=== PATIENT | female | born 1980 | race Caucasian/White ===

== ENCOUNTER 2016-02-26 11:14 | Emergency (ER) | payer OTHER ==
[~2016-02-26 11:14] MED LIST: AMBI10TA OR; ATIV1TAB2 OR; BUDE150T OR; ZITHTAB OR
[2016-02-26] MEDS ORDERED: ONDANSETRON 4 MG ORAL DISINTEGRATING TAB (S0181) As Ordered ONE (12:52)
[2016-02-26 13:01] LABS: BASO % 0.4 % (0.0-1.0); EOS # 0.2 K/mm3 (0.0-0.50); LARGE UNSTAINED CELL # 0.2 K/mm3 (0.0-0.4); LARGE UNSTAINED CELL % 2.6 % (0.0-4.0); LYMPH # 1.1 K/mm3 (1.5-4.5); LYMPH % 14.8 % (24.0-44.0); MEAN CORPUSCULAR HEMOGLOBIN 31.4 pg (27.0-33.0); MEAN CORPUSCULAR HGB CONC 35.2 g/dl (32.0-36.5); MEAN CORPUSCULAR VOLUME 89.3 fl (80.0-96.0); MONO # 0.4 K/mm3 (0.0-0.8); MONO % 5.6 % (0.0-5.0); NEUTROPHILS # 5.4 K/mm3 (1.8-7.7); NEUTROPHILS % 73.7 % (36.0-66.0); PLATELET COUNT, AUTOMATED 249 k/mm3 (150-450); RED CELL DISTRIBUTION WIDTH 12.4 % (11.5-14.5); WHITE BLOOD COUNT 7.4 K/mm3 (4.0-10.0)
--- NOTE | 2016-02-26 13:16 | REP ---
Right upper quadrant ultrasound 02/26/2016 Indication right upper quadrant, epigastric pain; patient is not NPO Findings: Gallbladder is without visualized cholelithiasis wall thickening or pericholecystic fluid. Gallbladder wall 2.5 mm in thickness upper normal range. There was tenderness upon scanning over the abdomen in general. Common bile duct 4.6 mm transverse dimension within normal limits There is mild diffuse fatty infiltration of liver. The pancreatic head is partially obscured by bowel gas. Remainder of pancreas is unremarkable. Right kidney measures 13.3 x 4.9 x 4.2 cm and is without hydronephrosis. There is normal right renal cortical echogenicity. There is no free fluid in cul-de-sac Impression: No evidence of cholelithiasis or biliary dilatation. Mild diffuse fatty infiltration of liver. Pancreatic head is partially obscured by bowel gas . Remainder of pancreas is unremarkable Right kidney without hydronephrosis Signed by Maribell Oseguera MD 02/26/2016 01:08 P
[2016-02-26 13:21] LABS: ALBUMIN 3.4 GM/DL (3.2-5.2); ALBUMIN/GLOBULIN RATIO 0.94 (1.00-1.93); ALKALINE PHOSPHATASE 59 U/L (45-117); ALT/SGPT 36 U/L (12-78); AMYLASE 25 U/L (25-115); ANION GAP 10 MEQ/L (8-16); AST/SGOT 22 U/L (15-37); BILIRUBIN,DIRECT 0.1 MG/DL (0.0-0.2); BILIRUBIN,TOTAL 0.5 MG/DL (0.2-1.0); BLOOD UREA NITROGEN 15 MG/DL (7-18); CALCIUM LEVEL 8.5 MG/DL (8.5-10.1); CARBON DIOXIDE LEVEL 26 MEQ/L (21-32); CHLORIDE LEVEL 105 MEQ/L (98-107); CREATININE FOR GFR 0.63 MG/DL (0.55-1.02); GLOMERULAR FILTRATION RATE > 60.0 (>60); GLUCOSE, FASTING 96 MG/DL (70-105); POTASSIUM SERUM 4.1 MEQ/L (3.5-5.1); SODIUM LEVEL 141 MEQ/L (136-145)
--- NOTE | 2016-02-26 14:35 | EDDOCDS ---
Nurse's Notes [facility] Name: Valarie Claudio Age: 35 yrs Sex: Female : 1980 Arrival Date: 02/26/2016 Time: 11:14 Bed PR2 / Private MD: Edna Shaw Diagnosis: Nausea and vomiting-likely viral gastroenteritis;Diarrhea, unspecified Presentation: 02/25 11:29 Presenting complaint: Patient states: upper abd cramps for past 4 days. vomits with srm eating. diarrhea. no abnormal vag bleeding. Risk factors: the patient reports no vaginal bleeding. Adult Sepsis Screening: The patient does not have new or worsening altered mentation. Patient's respiratory rate is less than 22. Systolic blood pressure is greater than 100. Patient has a qSOFA score of 0- Negative Sepsis Screen. Suicide/Homicide risk assessment- the patient denies having any suicidal and/or homicidal ideations and does not present with any other emotional, behavioral or mental health complaints. 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 Transition of care: patient was not received from another setting of care. 11:29 Acuity: CHANDLER Level 3 srm 11:29 Method Of Arrival: Walkin/Carried/Asstd srm Triage Assessment: 11:31 General: Appears in no apparent distress, Behavior is appropriate for age, cooperative. srm Pain: Pain currently is 8 out of 10 on a pain scale. HIV screening NA for this visit Offered previously. GI: Reports cramping, diarrhea, upper abd pain, nausea, vomiting. 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 albuterol sulfate 90 mcg/actuation Inhl HFAA 2. ibuprofen 800 mg Oral tab as needed 3. Xanax Unknown Oral 1 tab as needed - PMHx: Anemia; Anxiety; borderline DM; Bronchitis; Depression; Panic Attacks; PTSD; - PSHx: none; - Social history: Smoking status: Patient states was never smoker of tobacco. No barriers to communication noted, The patient speaks fluent Portuguese, Speaks appropriately for age. - Family history: No immediate family members are acutely ill. - : The pt / caregiver states he / she is not on anticoagulants. Home medication list is obtained from the patient. - Exposure Risk Screening:: None identified. Screenin:16 Screening information is obtained from the patient. Fall risk: No risks identified. mb9 Assistance ADL's: requires no assistance with activities of daily living. Abuse/DV Screen: The patient / caregiver reports he/she is: not in a situation that causes fear, pain or injury. Nutritional screening: No deficits noted. Advance Directives: There is no active DNR order. home support is adequate. Assessment: 14:16 General: Appears in no apparent distress, Behavior is appropriate for age, cooperative. mb9 Pain: Location: abdomen Quality of pain is described as crampy. GI: Reports pt reports nausea is decreased. Vital Signs: 11:16 BP 122 / 80; Pulse 95; Resp 16; Temp 99.7(O); Pulse Ox 97% ; Weight 88.45 kg; Height 5 cmb ft. 6 in. (167.64 cm); Pain 8/10; 14:29 BP 114 / 67; Pulse 76; Resp 18; Temp 99.0(TE); Pulse Ox 99% on R/A; Pain 6/10; mdr 11:16 Body Mass Index 31.47 (88.45 kg, 167.64 cm) cmb Vitals: 11:16 Log In Time: February 26, 2016 at 11:14. cmb ED Course: 11:15 Patient visited by Stefania Marks. cmb 11:15 Patient moved to Waiting cmb 11:16 Edna Shaw MD is Private Physician. cmb 11:16 Patient moved to Pre RCE cmb 11:30 Triage Initiated srm 12:07 Patient moved to Triage 1 mb9 12:09 Jaron Encarnacion PA-C is PHCP. ar2 12:09 Rob Hwang MD is Attending Physician. ar2 12:16 Patient visited by Jaron Encarnacion PA-C. ar2 12:26 Patient moved to PR2 / 26 mdr 12:29 Patient moved to Ultrasound sm5 12:42 Patient moved to PR2 / 26 sm5 12:51 Amylase Sent. mdr 12:51 Basic Metabolic Profile Sent. mdr 12:51 CBC with Diff Sent. mdr 12:51 Lipase Sent. mdr 12:51 Liver Profile Sent. mdr 12:54 Patient visited by Rod Cummings RN. mb9 13:17 Gallbladder US Returned. EDMS 13:25 Patient visited by Rod Cummings RN. mb9 14:16 Patient visited by Rod Cummings RN. mb9 14:24 Edna Shaw MD is Referral Physician. ar2 14:30 Patient visited by Dominguez Villa PCA. mdr 14:33 The patient / caregiver is instructed regarding the plan of care and ED course. mb9 14:33 No IV's were initiated during this patient's visit. No procedures done that require mb9 assistance. Administered Medications: 12:54 Drug: Ondansetron ODT 4 mg [ondansetron 4 mg disintegrating tablet (1 tabs)] Route: PO; mb9 13:26 Follow up: Response: Nausea is decreased mb9 Intake: 14:16 PO: 360.00ml (Water); Total: 360.00ml. mb9 Order Results: Lab Order: Amylase; SPEC'M 02/26/16 12:49 Test: AMYLASE; Value: 25; Range: 25-115; Units: U/L; Status: F Lab Order: Basic Metabolic Profile; SPEC'M 02/26/16 12:49 Test: GLUCOSE, FASTING; Value: 96; Range: 70-105; Units: MG/DL; Status: F Test: BLOOD UREA NITROGEN; Value: 15; Range: 7-18; Units: MG/DL; Status: F Test: CREATININE FOR GFR; Value: 0.63; Range: 0.55-1.02; Units: MG/DL; Status: F Test: GLOMERULAR FILTRATION RATE; Value: > 60.0; Range: >60; Status: F Test: SODIUM LEVEL; Value: 141; Range: 136-145; Units: MEQ/L; Status: F Test: POTASSIUM SERUM; Value: 4.1; Range: 3.5-5.1; Units: MEQ/L; Status: F Test: CHLORIDE LEVEL; Value: 105; Range: 98-107; Units: MEQ/L; Status: F Test: CARBON DIOXIDE LEVEL; Value: 26; Range: 21-32; Units: MEQ/L; Status: F Test: ANION GAP; Value: 10; Range: 8-16; Units: MEQ/L; Status: F Test: CALCIUM LEVEL; Value: 8.5; Range: 8.5-10.1; Units: MG/DL; Status: F Test Note: ; Units are mL/min/1.73 m2 Chronic Kidney Disease Staging per NKF: Stage I & II GFR >=60 Normal to Mildly Decreased Stage III GFR 30-59 Moderately Decreased Stage IV GFR 15-29 Severely Decreased Stage V GFR <15 Very Little GFR Left ESRD GFR <15 on PRE PRESS OPERATOR Lab Order: CBC with Diff; SPEC'M 02/26/16 12:49 Test: WHITE BLOOD COUNT; Value: 7.4; Range: 4.0-10.0; Units: K/mm3; Status: F Test: RED BLOOD COUNT; Value: 4.36; Range: 4.00-5.40; Units: M/mm3; Status: F Test: HEMOGLOBIN; Value: 13.7; Range: 12.0-16.0; Units: g/dl; Status: F Test: HEMATOCRIT; Value: 38.9; Range: 36.0-47.0; Units: %; Status: F Test: MEAN CORPUSCULAR VOLUME; Value: 89.3; Range: 80.0-96.0; Units: fl; Status: F Test: MEAN CORPUSCULAR HEMOGLOBIN; Value: 31.4; Range: 27.0-33.0; Units: pg; Status: F Test: MEAN CORPUSCULAR HGB CONC; Value: 35.2; Range: 32.0-36.5; Units: g/dl; Status: F Test: RED CELL DISTRIBUTION WIDTH; Value: 12.4; Range: 11.5-14.5; Units: %; Status: F Test: PLATELET COUNT, AUTOMATED; Value: 249; Range: 150-450; Units: k/mm3; Status: F Test: NEUTROPHILS %; Value: 73.7; Range: 36.0-66.0; Abnormal: Above high normal; Units: %; Status: F Test: LYMPH %; Value: 14.8; Range: 24.0-44.0; Abnormal: Below low normal; Units: %; Status: F Test: MONO %; Value: 5.6; Range: 0.0-5.0; Abnormal: Above high normal; Units: %; Status: F Test: EOS %; Value: 3.0; Range: 0.0-3.0; Units: %; Status: F Test: BASO %; Value: 0.4; Range: 0.0-1.0; Units: %; Status: F Test: LARGE UNSTAINED CELL %; Value: 2.6; Range: 0.0-4.0; Units: %; Status: F Test: NEUTROPHILS #; Value: 5.4; Range: 1.8-7.7; Units: K/mm3; Status: F Test: LYMPH #; Value: 1.1; Range: 1.5-4.5; Abnormal: Below low normal; Units: K/mm3; Status: F Test: MONO #; Value: 0.4; Range: 0.0-0.8; Units: K/mm3; Status: F Test: EOS #; Value: 0.2; Range: 0.0-0.50; Units: K/mm3; Status: F Test: BASO #; Value: 0.0; Range: 0.0-0.2; Units: K/mm3; Status: F Test: LARGE UNSTAINED CELL #; Value: 0.2; Range: 0.0-0.4; Units: K/mm3; Status: F Lab Order: Lipase; SPEC'M 02/26/16 12:49 Test: LIPASE; Value: 106; Range: 73-393; Units: U/L; Status: F Lab Order: Liver Profile; SPEC' 02/26/16 12:49 Test: AST/SGOT; Value: 22; Range: 15-37; Units: U/L; Status: F Test: ALT/SGPT; Value: 36; Range: 12-78; Units: U/L; Status: F Test: ALKALINE PHOSPHATASE; Value: 59; Range: 45-117; Units: U/L; Status: F Test: BILIRUBIN,TOTAL; Value: 0.5; Range: 0.2-1.0; Units: MG/DL; Status: F Test: BILIRUBIN,DIRECT; Value: 0.1; Range: 0.0-0.2; Units: MG/DL; Status: F Test: TOTAL PROTEIN; Value: 7.0; Range: 6.4-8.2; Units: GM/DL; Status: F Test: ALBUMIN; Value: 3.4; Range: 3.2-5.2; Units: GM/DL; Status: F Test: ALBUMIN/GLOBULIN RATIO; Value: 0.94; Range: 1.00-1.93; Abnormal: Below low normal; Status: F Radiology Order: Gallbladder US Test: Gallbladder US REASON FOR EXAMINATION: ruq/epigastric pain, nausea; Right upper quadrant ultrasound 02/26/2016; ; Indication right upper quadrant, epigastric pain; patient is not NPO; ; Findings: Gallbladder is without visualized cholelithiasis wall thickening or; pericholecystic fluid. Gallbladder wall 2.5 mm in thickness upper normal range.; There was tenderness upon scanning over the abdomen in general.; ; Common bile duct 4.6 mm transverse dimension within normal limits; ; There is mild diffuse fatty infiltration of liver.; ; The pancreatic head is partially obscured by bowel gas. Remainder of pancreas is; unremarkable.; ; Right kidney measures 13.3 x 4.9 x 4.2 cm and is without hydronephrosis. There; is normal right renal cortical echogenicity. There is no free fluid in; cul-de-sac; ; Impression: No evidence of cholelithiasis or biliary dilatation.; ; Mild diffuse fatty infiltration of liver. Pancreatic head is partially obscured; by bowel gas . Remainder of pancreas is unremarkable; ; Right kidney without hydronephrosis; ; ; Signed by; Maribell Oseguera MD 02/26/2016 01:08 P; Outcome: 14:24 Discharge ordered by Provider. ar2 14:33 Discharge Assessment: Patient awake, alert and oriented x 3. No cognitive and/or mb9 functional deficits noted. Patient verbalized understanding of disposition instructions. patient administered narcotics - no. The following High Risk Discharge criteria are identified: None. Discharged to home ambulatory, with significant other. Condition: good Condition: stable Condition: improved. Discharge instructions given to patient, Instructed on discharge instructions, follow up and referral plans. medication usage. Instructed on diet, Demonstrated understanding of instructions, medications, Pt was receptive of discharge instructions/ teaching. Prescriptions given X 2. No special radiology studies were completed. Property :Personal belongings accompany Pt. 14:35 Patient left the ED. mb9 Signatures: Dispatcher [employer] EDMS Patti Blum, RN YENIFER [facility] Phoebe Shelton 5 Jaron Encarnacion, PA-C PA-C ar2 Stefania Marks Michael, RN RN mb9 Dominguez Villa PCA TOUR COUNSELOR mdr MTDD
--- NOTE | 2016-02-26 14:35 | EDDOCDS ---
Physician Documentation [facility] Name: Valarie Claudio Age: 35 yrs Sex: Female : 1980 Arrival Date: 02/26/2016 Time: 11:14 Bed Private MD: Edna Shaw Disposition: 02/26/16 14:24 Discharged to Home/Self Care. Impression: Nausea and vomiting - likely viral gastroenteritis, Diarrhea, unspecified. - Condition is Stable. - Discharge Instructions: Viral Gastroenteritis. - Prescriptions for ZOFRAN ODT 4 mg - dissolve 1 tablet by ORAL route 4 times per day As needed do not chew, do not swallow whole; 10 tablet. Simethicone 80 mg - chew 1 tablet by ORAL route after meals and before bedtime chewable tablet; 30 tablet. - Medication Reconciliation, Local Pharmacy Hours form. - Follow up: Edna Shaw MD; When: Call to arrange an appointment; Reason: Recheck today's complaints, Continuance of care. Follow up: Emergency Department; When: As needed; Reason: Fever > 102F, Worsening of conditions. - Problem is new. - Symptoms have improved. Historical: - Allergies: Phenergan (twitches); - Home Meds: 1. albuterol sulfate 90 mcg/actuation Inhl HFAA 2. ibuprofen 800 mg Oral tab as needed 3. Xanax Unknown Oral 1 tab as needed - PMHx: Anemia; Anxiety; borderline DM; Bronchitis; Depression; Panic Attacks; PTSD; - PSHx: none; - Social history: Smoking status: Patient states was never smoker of tobacco. No barriers to communication noted, The patient speaks fluent Emirati, Speaks appropriately for age. - Family history: No immediate family members are acutely ill. - : The pt / caregiver states he / she is not on anticoagulants. Home medication list is obtained from the patient. - Exposure Risk Screening:: None identified. 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 6 in. (167.64 cm); Pain 8/10; 14:29 BP 114 / 67; Pulse 76; Resp 18; Temp 99.0(TE); Pulse Ox 99% on R/A; Pain 6/10; mdr 11:16 Body Mass Index 31.47 (88.45 kg, 167.64 cm) cmb MDM: 12:25 UCG by Nursing ordered. ar2 12:25 Ondansetron ODT Oral Disintegrating Tablet 4 mg PO once ordered. ar2 12:25 Amylase Ordered. EDMS 12:25 Basic Metabolic Profile Ordered. EDMS 12:25 CBC with Diff Ordered. EDMS 12:25 Lipase Ordered. EDMS 12:25 Liver Profile Ordered. EDMS 12:26 Gallbladder US Ordered. EDMS 12:34 Financial registration complete. lg 13:39 CBC with Diff Reviewed. ar2 13:39 Liver Profile Reviewed. ar2 13:39 Amylase Reviewed. ar2 13:39 Basic Metabolic Profile Reviewed. ar2 13:39 Lipase Reviewed. ar2 13:39 Gallbladder US Reviewed. ar2 13:40 Fluid Challenge ordered. ar2 Administered Medications: 12:54 Drug: Ondansetron ODT 4 mg [ondansetron 4 mg disintegrating tablet (1 tabs)] Route: PO; mb9 13:26 Follow up: Response: Nausea is decreased mb9 Signatures: Dispatcher [employer] EDMS Patti Blum, YENIFER STREET srm Angel Gastelum, Bernardino Reg lg Jaron Encarnacion PA-C PA-C ar2 Rod Cummings RN RN mb9 MTDD
--- NOTE | 2016-02-28 15:35 | EDDOCDS ---
Physician Documentation [facility] Name: Valarie Claudio Age: 35 yrs Sex: Female : 1980 Arrival Date: 02/26/2016 Time: 11:14 Bed Private MD: Edna Shaw Disposition: 02/26/16 14:24 Discharged to Home/Self Care. Impression: Nausea and vomiting - likely viral gastroenteritis, Diarrhea, unspecified. - Condition is Stable. - Discharge Instructions: Viral Gastroenteritis. - Prescriptions for ZOFRAN ODT 4 mg - dissolve 1 tablet by ORAL route 4 times per day As needed do not chew, do not swallow whole; 10 tablet. Simethicone 80 mg - chew 1 tablet by ORAL route after meals and before bedtime chewable tablet; 30 tablet. - Medication Reconciliation, Local Pharmacy Hours form. - Follow up: Edna Shaw MD; When: Call to arrange an appointment; Reason: Recheck today's complaints, Continuance of care. Follow up: Emergency Department; When: As needed; Reason: Fever > 102F, Worsening of conditions. - Problem is new. - Symptoms have improved. Historical: - Allergies: Phenergan (twitches); - Home Meds: 1. albuterol sulfate 90 mcg/actuation Inhl HFAA 2. ibuprofen 800 mg Oral tab as needed 3. Xanax Unknown Oral 1 tab as needed - PMHx: Anemia; Anxiety; borderline DM; Bronchitis; Depression; Panic Attacks; PTSD; - PSHx: none; - Social history: Smoking status: Patient states was never smoker of tobacco. No barriers to communication noted, The patient speaks fluent Congolese, Speaks appropriately for age. - Family history: No immediate family members are acutely ill. - : The pt / caregiver states he / she is not on anticoagulants. Home medication list is obtained from the patient. - Exposure Risk Screening:: None identified. 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 6 in. (167.64 cm); Pain 8/10; 14:29 BP 114 / 67; Pulse 76; Resp 18; Temp 99.0(TE); Pulse Ox 99% on R/A; Pain 6/10; mdr 11:16 Body Mass Index 31.47 (88.45 kg, 167.64 cm) cmb MDM: 12:25 UCG by Nursing ordered. ar2 12:25 Ondansetron ODT Oral Disintegrating Tablet 4 mg PO once ordered. ar2 12:25 Amylase Ordered. EDMS 12:25 Basic Metabolic Profile Ordered. EDMS 12:25 CBC with Diff Ordered. EDMS 12:25 Lipase Ordered. EDMS 12:25 Liver Profile Ordered. EDMS 12:26 Gallbladder US Ordered. EDMS 12:34 Financial registration complete. lg 13:39 CBC with Diff Reviewed. ar2 13:39 Liver Profile Reviewed. ar2 13:39 Amylase Reviewed. ar2 13:39 Basic Metabolic Profile Reviewed. ar2 13:39 Lipase Reviewed. ar2 13:39 Gallbladder US Reviewed. ar2 13:40 Fluid Challenge ordered. ar2 15:44 T-Sheet-- Draft Copy was scanned into [employer] and attached to record. gb 15:44 Radiology Report was scanned into [employer] and attached to record. gb Administered Medications: 12:54 Drug: Ondansetron ODT 4 mg [ondansetron 4 mg disintegrating tablet (1 tabs)] Route: PO; mb9 13:26 Follow up: Response: Nausea is decreased mb9 Signatures: Dispatcher [employer] Patti Renee, RN YENIFER srm Gertrude Monreal, Reg Reg gb Angel Gastelum, Reg Reg lg Jaron Encarnacion, VINNY PASaleem ar2 Rod Cummings RN RN mb9 The chart was reviewed and I authenticate all verbal orders and agree with the evaluation and treatment provided.Attachments: 15:44 T-Sheet-- Draft Copy gb Chart Complete MTDD
--- NOTE | 2016-02-28 15:35 | EDDOCDS ---
Physician Documentation [facility] Name: Valarie Claudio Age: 35 yrs Sex: Female : 1980 Arrival Date: 02/26/2016 Time: 11:14 Bed Private MD: Edna Shaw Disposition: 02/26/16 14:24 Discharged to Home/Self Care. Impression: Nausea and vomiting - likely viral gastroenteritis, Diarrhea, unspecified. - Condition is Stable. - Discharge Instructions: Viral Gastroenteritis. - Prescriptions for ZOFRAN ODT 4 mg - dissolve 1 tablet by ORAL route 4 times per day As needed do not chew, do not swallow whole; 10 tablet. Simethicone 80 mg - chew 1 tablet by ORAL route after meals and before bedtime chewable tablet; 30 tablet. - Medication Reconciliation, Local Pharmacy Hours form. - Follow up: Edna Shaw MD; When: Call to arrange an appointment; Reason: Recheck today's complaints, Continuance of care. Follow up: Emergency Department; When: As needed; Reason: Fever > 102F, Worsening of conditions. - Problem is new. - Symptoms have improved. Historical: - Allergies: Phenergan (twitches); - Home Meds: 1. albuterol sulfate 90 mcg/actuation Inhl HFAA 2. ibuprofen 800 mg Oral tab as needed 3. Xanax Unknown Oral 1 tab as needed - PMHx: Anemia; Anxiety; borderline DM; Bronchitis; Depression; Panic Attacks; PTSD; - PSHx: none; - Social history: Smoking status: Patient states was never smoker of tobacco. No barriers to communication noted, The patient speaks fluent Danish, Speaks appropriately for age. - Family history: No immediate family members are acutely ill. - : The pt / caregiver states he / she is not on anticoagulants. Home medication list is obtained from the patient. - Exposure Risk Screening:: None identified. 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 6 in. (167.64 cm); Pain 8/10; 14:29 BP 114 / 67; Pulse 76; Resp 18; Temp 99.0(TE); Pulse Ox 99% on R/A; Pain 6/10; mdr 11:16 Body Mass Index 31.47 (88.45 kg, 167.64 cm) cmb MDM: 12:25 UCG by Nursing ordered. ar2 12:25 Ondansetron ODT Oral Disintegrating Tablet 4 mg PO once ordered. ar2 12:25 Amylase Ordered. EDMS 12:25 Basic Metabolic Profile Ordered. EDMS 12:25 CBC with Diff Ordered. EDMS 12:25 Lipase Ordered. EDMS 12:25 Liver Profile Ordered. EDMS 12:26 Gallbladder US Ordered. EDMS 12:34 Financial registration complete. lg 13:39 CBC with Diff Reviewed. ar2 13:39 Liver Profile Reviewed. ar2 13:39 Amylase Reviewed. ar2 13:39 Basic Metabolic Profile Reviewed. ar2 13:39 Lipase Reviewed. ar2 13:39 Gallbladder US Reviewed. ar2 13:40 Fluid Challenge ordered. ar2 15:44 T-Sheet-- Draft Copy was scanned into [employer] and attached to record. gb 15:44 Radiology Report was scanned into [employer] and attached to record. gb Administered Medications: 12:54 Drug: Ondansetron ODT 4 mg [ondansetron 4 mg disintegrating tablet (1 tabs)] Route: PO; mb9 13:26 Follow up: Response: Nausea is decreased mb9 Signatures: Dispatcher [employer] Patti Renee, RN YENIFER srm Gertrude Monreal, Reg Reg gb Angel Gastelum, Reg Reg lg Jaron Encarnacion, VINNY PASaleem ar2 Rod Cumminsg RN RN mb9 The chart was reviewed and I authenticate all verbal orders and agree with the evaluation and treatment provided.Attachments: 15:44 T-Sheet-- Draft Copy gb Chart Complete MTDD
--- NOTE | 2016-02-28 15:35 | EDDOCDS ---
Nurse's Notes [facility] Name: Valarie Claudio Age: 35 yrs Sex: Female : 1980 Arrival Date: 02/26/2016 Time: 11:14 Bed PR2 / Private MD: Edna Shaw Diagnosis: Nausea and vomiting-likely viral gastroenteritis;Diarrhea, unspecified Presentation: 02/25 11:29 Presenting complaint: Patient states: upper abd cramps for past 4 days. vomits with srm eating. diarrhea. no abnormal vag bleeding. Risk factors: the patient reports no vaginal bleeding. Adult Sepsis Screening: The patient does not have new or worsening altered mentation. Patient's respiratory rate is less than 22. Systolic blood pressure is greater than 100. Patient has a qSOFA score of 0- Negative Sepsis Screen. Suicide/Homicide risk assessment- the patient denies having any suicidal and/or homicidal ideations and does not present with any other emotional, behavioral or mental health complaints. Status: Patient is not a mobile equipment servicer or dependent. Transition of care: patient was not received from another setting of care. 11:29 Acuity: CHANDLER Level 3 srm 11:29 Method Of Arrival: Walkin/Carried/Asstd srm Triage Assessment: 11:31 General: Appears in no apparent distress, Behavior is appropriate for age, cooperative. srm Pain: Pain currently is 8 out of 10 on a pain scale. HIV screening NA for this visit Offered previously. GI: Reports cramping, diarrhea, upper abd pain, nausea, vomiting. 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 albuterol sulfate 90 mcg/actuation Inhl HFAA 2. ibuprofen 800 mg Oral tab as needed 3. Xanax Unknown Oral 1 tab as needed - PMHx: Anemia; Anxiety; borderline DM; Bronchitis; Depression; Panic Attacks; PTSD; - PSHx: none; - Social history: Smoking status: Patient states was never smoker of tobacco. No barriers to communication noted, The patient speaks fluent French, Speaks appropriately for age. - Family history: No immediate family members are acutely ill. - : The pt / caregiver states he / she is not on anticoagulants. Home medication list is obtained from the patient. - Exposure Risk Screening:: None identified. Screenin:16 Screening information is obtained from the patient. Fall risk: No risks identified. mb9 Assistance ADL's: requires no assistance with activities of daily living. Abuse/DV Screen: The patient / caregiver reports he/she is: not in a situation that causes fear, pain or injury. Nutritional screening: No deficits noted. Advance Directives: There is no active DNR order. home support is adequate. Assessment: 14:16 General: Appears in no apparent distress, Behavior is appropriate for age, cooperative. mb9 Pain: Location: abdomen Quality of pain is described as crampy. GI: Reports pt reports nausea is decreased. Vital Signs: 11:16 BP 122 / 80; Pulse 95; Resp 16; Temp 99.7(O); Pulse Ox 97% ; Weight 88.45 kg; Height 5 cmb ft. 6 in. (167.64 cm); Pain 8/10; 14:29 BP 114 / 67; Pulse 76; Resp 18; Temp 99.0(TE); Pulse Ox 99% on R/A; Pain 6/10; mdr 11:16 Body Mass Index 31.47 (88.45 kg, 167.64 cm) cmb Vitals: 11:16 Log In Time: February 26, 2016 at 11:14. cmb ED Course: 11:15 Patient visited by Stefania Marks. cmb 11:15 Patient moved to Waiting cmb 11:16 Edna Shaw MD is Private Physician. cmb 11:16 Patient moved to Pre RCE cmb 11:30 Triage Initiated srm 12:07 Patient moved to Triage 1 mb9 12:09 Jaron Encarnacion PA-C is PHCP. ar2 12:09 Rob Hwang MD is Attending Physician. ar2 12:16 Patient visited by Jaron Encarnacion PA-C. ar2 12:26 Patient moved to PR2 / 26 mdr 12:29 Patient moved to Ultrasound sm5 12:42 Patient moved to PR2 / 26 sm5 12:51 Amylase Sent. mdr 12:51 Basic Metabolic Profile Sent. mdr 12:51 CBC with Diff Sent. mdr 12:51 Lipase Sent. mdr 12:51 Liver Profile Sent. mdr 12:54 Patient visited by Rod Cummings RN. mb9 13:17 Gallbladder US Returned. EDMS 13:25 Patient visited by Rod Cummings RN. mb9 14:16 Patient visited by Rod Cummings RN. mb9 14:24 Edna Shaw MD is Referral Physician. ar2 14:30 Patient visited by Dominguez Villa PCA. mdr 14:33 The patient / caregiver is instructed regarding the plan of care and ED course. mb9 14:33 No IV's were initiated during this patient's visit. No procedures done that require mb9 assistance. 14:38 Patient name changed from Valarie\S\\S\González\S\ to Valarie\S\ \S\González. EDMS 15:44 T-Sheet-- Draft Copy was scanned into [employer] and attached to record. gb 15:44 Radiology Report was scanned into [employer] and attached to record. gb Administered Medications: 12:54 Drug: Ondansetron ODT 4 mg [ondansetron 4 mg disintegrating tablet (1 tabs)] Route: PO; mb9 13:26 Follow up: Response: Nausea is decreased mb9 Intake: 14:16 PO: 360.00ml (Water); Total: 360.00ml. mb9 Order Results: Lab Order: Amylase; SPEC'M 02/26/16 12:49 Test: AMYLASE; Value: 25; Range: 25-115; Units: U/L; Status: F Lab Order: Basic Metabolic Profile; SPEC'M 02/26/16 12:49 Test: GLUCOSE, FASTING; Value: 96; Range: 70-105; Units: MG/DL; Status: F Test: BLOOD UREA NITROGEN; Value: 15; Range: 7-18; Units: MG/DL; Status: F Test: CREATININE FOR GFR; Value: 0.63; Range: 0.55-1.02; Units: MG/DL; Status: F Test: GLOMERULAR FILTRATION RATE; Value: > 60.0; Range: >60; Status: F Test: SODIUM LEVEL; Value: 141; Range: 136-145; Units: MEQ/L; Status: F Test: POTASSIUM SERUM; Value: 4.1; Range: 3.5-5.1; Units: MEQ/L; Status: F Test: CHLORIDE LEVEL; Value: 105; Range: 98-107; Units: MEQ/L; Status: F Test: CARBON DIOXIDE LEVEL; Value: 26; Range: 21-32; Units: MEQ/L; Status: F Test: ANION GAP; Value: 10; Range: 8-16; Units: MEQ/L; Status: F Test: CALCIUM LEVEL; Value: 8.5; Range: 8.5-10.1; Units: MG/DL; Status: F Test Note: ; Units are mL/min/1.73 m2 Chronic Kidney Disease Staging per NKF: Stage I & II GFR >=60 Normal to Mildly Decreased Stage III GFR 30-59 Moderately Decreased Stage IV GFR 15-29 Severely Decreased Stage V GFR <15 Very Little GFR Left ESRD GFR <15 on AERIAL TRAM OPERATOR Lab Order: CBC with Diff; SPEC'M 02/26/16 12:49 Test: WHITE BLOOD COUNT; Value: 7.4; Range: 4.0-10.0; Units: K/mm3; Status: F Test: RED BLOOD COUNT; Value: 4.36; Range: 4.00-5.40; Units: M/mm3; Status: F Test: HEMOGLOBIN; Value: 13.7; Range: 12.0-16.0; Units: g/dl; Status: F Test: HEMATOCRIT; Value: 38.9; Range: 36.0-47.0; Units: %; Status: F Test: MEAN CORPUSCULAR VOLUME; Value: 89.3; Range: 80.0-96.0; Units: fl; Status: F Test: MEAN CORPUSCULAR HEMOGLOBIN; Value: 31.4; Range: 27.0-33.0; Units: pg; Status: F Test: MEAN CORPUSCULAR HGB CONC; Value: 35.2; Range: 32.0-36.5; Units: g/dl; Status: F Test: RED CELL DISTRIBUTION WIDTH; Value: 12.4; Range: 11.5-14.5; Units: %; Status: F Test: PLATELET COUNT, AUTOMATED; Value: 249; Range: 150-450; Units: k/mm3; Status: F Test: NEUTROPHILS %; Value: 73.7; Range: 36.0-66.0; Abnormal: Above high normal; Units: %; Status: F Test: LYMPH %; Value: 14.8; Range: 24.0-44.0; Abnormal: Below low normal; Units: %; Status: F Test: MONO %; Value: 5.6; Range: 0.0-5.0; Abnormal: Above high normal; Units: %; Status: F Test: EOS %; Value: 3.0; Range: 0.0-3.0; Units: %; Status: F Test: BASO %; Value: 0.4; Range: 0.0-1.0; Units: %; Status: F Test: LARGE UNSTAINED CELL %; Value: 2.6; Range: 0.0-4.0; Units: %; Status: F Test: NEUTROPHILS #; Value: 5.4; Range: 1.8-7.7; Units: K/mm3; Status: F Test: LYMPH #; Value: 1.1; Range: 1.5-4.5; Abnormal: Below low normal; Units: K/mm3; Status: F Test: MONO #; Value: 0.4; Range: 0.0-0.8; Units: K/mm3; Status: F Test: EOS #; Value: 0.2; Range: 0.0-0.50; Units: K/mm3; Status: F Test: BASO #; Value: 0.0; Range: 0.0-0.2; Units: K/mm3; Status: F Test: LARGE UNSTAINED CELL #; Value: 0.2; Range: 0.0-0.4; Units: K/mm3; Status: F Lab Order: Lipase; SPEC' 02/26/16 12:49 Test: LIPASE; Value: 106; Range: 73-393; Units: U/L; Status: F Lab Order: Liver Profile; SPEC'M 02/26/16 12:49 Test: AST/SGOT; Value: 22; Range: 15-37; Units: U/L; Status: F Test: ALT/SGPT; Value: 36; Range: 12-78; Units: U/L; Status: F Test: ALKALINE PHOSPHATASE; Value: 59; Range: 45-117; Units: U/L; Status: F Test: BILIRUBIN,TOTAL; Value: 0.5; Range: 0.2-1.0; Units: MG/DL; Status: F Test: BILIRUBIN,DIRECT; Value: 0.1; Range: 0.0-0.2; Units: MG/DL; Status: F Test: TOTAL PROTEIN; Value: 7.0; Range: 6.4-8.2; Units: GM/DL; Status: F Test: ALBUMIN; Value: 3.4; Range: 3.2-5.2; Units: GM/DL; Status: F Test: ALBUMIN/GLOBULIN RATIO; Value: 0.94; Range: 1.00-1.93; Abnormal: Below low normal; Status: F Radiology Order: Gallbladder US Test: Gallbladder US REASON FOR EXAMINATION: ruq/epigastric pain, nausea; Right upper quadrant ultrasound 02/26/2016; ; Indication right upper quadrant, epigastric pain; patient is not NPO; ; Findings: Gallbladder is without visualized cholelithiasis wall thickening or; pericholecystic fluid. Gallbladder wall 2.5 mm in thickness upper normal range.; There was tenderness upon scanning over the abdomen in general.; ; Common bile duct 4.6 mm transverse dimension within normal limits; ; There is mild diffuse fatty infiltration of liver.; ; The pancreatic head is partially obscured by bowel gas. Remainder of pancreas is; unremarkable.; ; Right kidney measures 13.3 x 4.9 x 4.2 cm and is without hydronephrosis. There; is normal right renal cortical echogenicity. There is no free fluid in; cul-de-sac; ; Impression: No evidence of cholelithiasis or biliary dilatation.; ; Mild diffuse fatty infiltration of liver. Pancreatic head is partially obscured; by bowel gas . Remainder of pancreas is unremarkable; ; Right kidney without hydronephrosis; ; ; Signed by; Maribell Oseguera MD 02/26/2016 01:08 P; Outcome: 14:24 Discharge ordered by Provider. ar2 14:33 Discharge Assessment: Patient awake, alert and oriented x 3. No cognitive and/or mb9 functional deficits noted. Patient verbalized understanding of disposition instructions. patient administered narcotics - no. The following High Risk Discharge criteria are identified: None. Discharged to home ambulatory, with significant other. Condition: good Condition: stable Condition: improved. Discharge instructions given to patient, Instructed on discharge instructions, follow up and referral plans. medication usage. Instructed on diet, Demonstrated understanding of instructions, medications, Pt was receptive of discharge instructions/ teaching. Prescriptions given X 2. No special radiology studies were completed. Property :Personal belongings accompany Pt. 14:35 Patient left the ED. mb9 Signatures: Dispatcher [employer] EDMS Patti Blum, RN RN srm Gertrude Monreal, Reg Reg gb Phoebe Shelton sm5 Jaron Encarnacion PA-C PA-C ar2 [place], [place] cmb Belles, Michael, RN RN mb9 Dominguez Villa, ICE CREAM MAN ICE CREAM MAN mdr Chart Complete MTDD
--- NOTE | 2016-02-29 12:12 | EDDOCDS ---
Physician Documentation [facility] Name: Valarie Claudio Age: 35 yrs Sex: Female : 1980 Arrival Date: 02/26/2016 Time: 11:14 Bed Private MD: Edna Shaw Disposition: 02/26/16 14:24 Discharged to Home/Self Care. Impression: Nausea and vomiting - likely viral gastroenteritis, Diarrhea, unspecified. - Condition is Stable. - Discharge Instructions: Viral Gastroenteritis. - Prescriptions for ZOFRAN ODT 4 mg - dissolve 1 tablet by ORAL route 4 times per day As needed do not chew, do not swallow whole; 10 tablet. Simethicone 80 mg - chew 1 tablet by ORAL route after meals and before bedtime chewable tablet; 30 tablet. - Medication Reconciliation, Local Pharmacy Hours form. - Follow up: Edna Shaw MD; When: Call to arrange an appointment; Reason: Recheck today's complaints, Continuance of care. Follow up: Emergency Department; When: As needed; Reason: Fever > 102F, Worsening of conditions. - Problem is new. - Symptoms have improved. Historical: - Allergies: Phenergan (twitches); - Home Meds: 1. albuterol sulfate 90 mcg/actuation Inhl HFAA 2. ibuprofen 800 mg Oral tab as needed 3. Xanax Unknown Oral 1 tab as needed - PMHx: Anemia; Anxiety; borderline DM; Bronchitis; Depression; Panic Attacks; PTSD; - PSHx: none; - Social history: Smoking status: Patient states was never smoker of tobacco. No barriers to communication noted, The patient speaks fluent Czech, Speaks appropriately for age. - Family history: No immediate family members are acutely ill. - : The pt / caregiver states he / she is not on anticoagulants. Home medication list is obtained from the patient. - Exposure Risk Screening:: None identified. EMT I/85: 02/25 11:31 LMP 01/23/2016 srm Vital Signs: 11:16 BP 122 / 80; Pulse 95; Resp 16; Temp 99.7(O); Pulse Ox 97% ; Weight 88.45 kg / 195 lbs; cmb Height 5 ft. 6 in. (167.64 cm); Pain 8/10; 14:29 BP 114 / 67; Pulse 76; Resp 18; Temp 99.0(TE); Pulse Ox 99% on R/A; Pain 6/10; mdr 11:16 Body Mass Index 31.47 (88.45 kg, 167.64 cm) cmb MDM: 12:25 UCG by Nursing ordered. ar2 12:25 Ondansetron ODT Oral Disintegrating Tablet 4 mg PO once ordered. ar2 12:25 Amylase Ordered. EDMS 12:25 Basic Metabolic Profile Ordered. EDMS 12:25 CBC with Diff Ordered. EDMS 12:25 Lipase Ordered. EDMS 12:25 Liver Profile Ordered. EDMS 12:26 Gallbladder US Ordered. EDMS 12:34 Financial registration complete. lg 13:39 CBC with Diff Reviewed. ar2 13:39 Liver Profile Reviewed. ar2 13:39 Amylase Reviewed. ar2 13:39 Basic Metabolic Profile Reviewed. ar2 13:39 Lipase Reviewed. ar2 13:39 Gallbladder US Reviewed. ar2 13:40 Fluid Challenge ordered. ar2 15:44 T-Sheet-- Draft Copy was scanned into [employer] and attached to record. gb 15:44 Radiology Report was scanned into [employer] and attached to record. gb Administered Medications: 12:54 Drug: Ondansetron ODT 4 mg [ondansetron 4 mg disintegrating tablet (1 tabs)] Route: PO; mb9 13:26 Follow up: Response: Nausea is decreased mb9 Signatures: Dispatcher [employer] Patti Renee, RN YENIFER srm Gertrude Monreal, Reg Reg gb Angel Gastelum, Reg Reg lg Jaron Encarnacion, VINNY PASaleem ar2 Rod Cummings RN RN mb9 The chart was reviewed and I authenticate all verbal orders and agree with the evaluation and treatment provided.Attachments: 15:44 T-Sheet-- Draft Copy gb Chart Complete MTDD
--- NOTE | 2016-02-29 12:13 | EDDOCDS ---
Physician Documentation [facility] Name: Valarie Claudio Age: 35 yrs Sex: Female : 1980 Arrival Date: 02/26/2016 Time: 11:14 Bed Private MD: Edna Shaw Disposition: 02/26/16 14:24 Discharged to Home/Self Care. Impression: Nausea and vomiting - likely viral gastroenteritis, Diarrhea, unspecified. - Condition is Stable. - Discharge Instructions: Viral Gastroenteritis. - Prescriptions for ZOFRAN ODT 4 mg - dissolve 1 tablet by ORAL route 4 times per day As needed do not chew, do not swallow whole; 10 tablet. Simethicone 80 mg - chew 1 tablet by ORAL route after meals and before bedtime chewable tablet; 30 tablet. - Medication Reconciliation, Local Pharmacy Hours form. - Follow up: Edna Shaw MD; When: Call to arrange an appointment; Reason: Recheck today's complaints, Continuance of care. Follow up: Emergency Department; When: As needed; Reason: Fever > 102F, Worsening of conditions. - Problem is new. - Symptoms have improved. Historical: - Allergies: Phenergan (twitches); - Home Meds: 1. albuterol sulfate 90 mcg/actuation Inhl HFAA 2. ibuprofen 800 mg Oral tab as needed 3. Xanax Unknown Oral 1 tab as needed - PMHx: Anemia; Anxiety; borderline DM; Bronchitis; Depression; Panic Attacks; PTSD; - PSHx: none; - Social history: Smoking status: Patient states was never smoker of tobacco. No barriers to communication noted, The patient speaks fluent Tajik, Speaks appropriately for age. - Family history: No immediate family members are acutely ill. - : The pt / caregiver states he / she is not on anticoagulants. Home medication list is obtained from the patient. - Exposure Risk Screening:: None identified. HOST/HOSTESS: 02/25 11:31 LMP 01/23/2016 srm Vital Signs: 11:16 BP 122 / 80; Pulse 95; Resp 16; Temp 99.7(O); Pulse Ox 97% ; Weight 88.45 kg / 195 lbs; cmb Height 5 ft. 6 in. (167.64 cm); Pain 8/10; 14:29 BP 114 / 67; Pulse 76; Resp 18; Temp 99.0(TE); Pulse Ox 99% on R/A; Pain 6/10; mdr 11:16 Body Mass Index 31.47 (88.45 kg, 167.64 cm) cmb MDM: 12:25 UCG by Nursing ordered. ar2 12:25 Ondansetron ODT Oral Disintegrating Tablet 4 mg PO once ordered. ar2 12:25 Amylase Ordered. EDMS 12:25 Basic Metabolic Profile Ordered. EDMS 12:25 CBC with Diff Ordered. EDMS 12:25 Lipase Ordered. EDMS 12:25 Liver Profile Ordered. EDMS 12:26 Gallbladder US Ordered. EDMS 12:34 Financial registration complete. lg 13:39 CBC with Diff Reviewed. ar2 13:39 Liver Profile Reviewed. ar2 13:39 Amylase Reviewed. ar2 13:39 Basic Metabolic Profile Reviewed. ar2 13:39 Lipase Reviewed. ar2 13:39 Gallbladder US Reviewed. ar2 13:40 Fluid Challenge ordered. ar2 15:44 T-Sheet-- Draft Copy was scanned into [employer] and attached to record. gb 15:44 Radiology Report was scanned into [employer] and attached to record. gb Administered Medications: 12:54 Drug: Ondansetron ODT 4 mg [ondansetron 4 mg disintegrating tablet (1 tabs)] Route: PO; mb9 13:26 Follow up: Response: Nausea is decreased mb9 Signatures: Dispatcher [employer] Patti Renee, RN YENIFER srm Gertrude Monreal, Reg Reg gb Angel Gastelum, Reg Reg lg Jaron Encarnacion, VINNY PASaleem ar2 Rod Cummings RN RN mb9 The chart was reviewed and I authenticate all verbal orders and agree with the evaluation and treatment provided.Attachments: 15:44 T-Sheet-- Draft Copy gb Chart Complete MTDD
--- NOTE | 2016-02-29 12:13 | EDDOCDS ---
Nurse's Notes [facility] Name: Valarie Claudio Age: 35 yrs Sex: Female : 1980 Arrival Date: 02/26/2016 Time: 11:14 Bed PR2 / Private MD: Edna Shaw Diagnosis: Nausea and vomiting-likely viral gastroenteritis;Diarrhea, unspecified Presentation: 02/25 11:29 Presenting complaint: Patient states: upper abd cramps for past 4 days. vomits with srm eating. diarrhea. no abnormal vag bleeding. Risk factors: the patient reports no vaginal bleeding. Adult Sepsis Screening: The patient does not have new or worsening altered mentation. Patient's respiratory rate is less than 22. Systolic blood pressure is greater than 100. Patient has a qSOFA score of 0- Negative Sepsis Screen. Suicide/Homicide risk assessment- the patient denies having any suicidal and/or homicidal ideations and does not present with any other emotional, behavioral or mental health complaints. 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 Transition of care: patient was not received from another setting of care. 11:29 Acuity: CHANDLER Level 3 srm 11:29 Method Of Arrival: Walkin/Carried/Asstd srm Triage Assessment: 11:31 General: Appears in no apparent distress, Behavior is appropriate for age, cooperative. srm Pain: Pain currently is 8 out of 10 on a pain scale. HIV screening NA for this visit Offered previously. GI: Reports cramping, diarrhea, upper abd pain, nausea, vomiting. 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 albuterol sulfate 90 mcg/actuation Inhl HFAA 2. ibuprofen 800 mg Oral tab as needed 3. Xanax Unknown Oral 1 tab as needed - PMHx: Anemia; Anxiety; borderline DM; Bronchitis; Depression; Panic Attacks; PTSD; - PSHx: none; - Social history: Smoking status: Patient states was never smoker of tobacco. No barriers to communication noted, The patient speaks fluent Divehi, Speaks appropriately for age. - Family history: No immediate family members are acutely ill. - : The pt / caregiver states he / she is not on anticoagulants. Home medication list is obtained from the patient. - Exposure Risk Screening:: None identified. Screenin:16 Screening information is obtained from the patient. Fall risk: No risks identified. mb9 Assistance ADL's: requires no assistance with activities of daily living. Abuse/DV Screen: The patient / caregiver reports he/she is: not in a situation that causes fear, pain or injury. Nutritional screening: No deficits noted. Advance Directives: There is no active DNR order. home support is adequate. Assessment: 14:16 General: Appears in no apparent distress, Behavior is appropriate for age, cooperative. mb9 Pain: Location: abdomen Quality of pain is described as crampy. GI: Reports pt reports nausea is decreased. Vital Signs: 11:16 BP 122 / 80; Pulse 95; Resp 16; Temp 99.7(O); Pulse Ox 97% ; Weight 88.45 kg; Height 5 cmb ft. 6 in. (167.64 cm); Pain 8/10; 14:29 BP 114 / 67; Pulse 76; Resp 18; Temp 99.0(TE); Pulse Ox 99% on R/A; Pain 6/10; mdr 11:16 Body Mass Index 31.47 (88.45 kg, 167.64 cm) cmb Vitals: 11:16 Log In Time: February 26, 2016 at 11:14. cmb ED Course: 11:15 Patient visited by Stefania Marks. cmb 11:15 Patient moved to Waiting cmb 11:16 Edna Shaw MD is Private Physician. cmb 11:16 Patient moved to Pre RCE cmb 11:30 Triage Initiated srm 12:07 Patient moved to Triage 1 mb9 12:09 Jaron Encarnacion PA-C is PHCP. ar2 12:09 Rob Hwang MD is Attending Physician. ar2 12:16 Patient visited by Jaron Encarnacion PA-C. ar2 12:26 Patient moved to PR2 / 26 mdr 12:29 Patient moved to Ultrasound sm5 12:42 Patient moved to PR2 / 26 sm5 12:51 Amylase Sent. mdr 12:51 Basic Metabolic Profile Sent. mdr 12:51 CBC with Diff Sent. mdr 12:51 Lipase Sent. mdr 12:51 Liver Profile Sent. mdr 12:54 Patient visited by Rod Cummings RN. mb9 13:17 Gallbladder US Returned. EDMS 13:25 Patient visited by Rod Cummings RN. mb9 14:16 Patient visited by Rod Cummings RN. mb9 14:24 Edna Shaw MD is Referral Physician. ar2 14:30 Patient visited by Dominguez Villa PCA. mdr 14:33 The patient / caregiver is instructed regarding the plan of care and ED course. mb9 14:33 No IV's were initiated during this patient's visit. No procedures done that require mb9 assistance. 14:38 Patient name changed from Valarie\S\\S\González\S\ to Valarie\S\ \S\González. EDMS 15:44 T-Sheet-- Draft Copy was scanned into [employer] and attached to record. gb 15:44 Radiology Report was scanned into [employer] and attached to record. gb Administered Medications: 12:54 Drug: Ondansetron ODT 4 mg [ondansetron 4 mg disintegrating tablet (1 tabs)] Route: PO; mb9 13:26 Follow up: Response: Nausea is decreased mb9 Intake: 14:16 PO: 360.00ml (Water); Total: 360.00ml. mb9 Order Results: Lab Order: Amylase; SPEC'M 02/26/16 12:49 Test: AMYLASE; Value: 25; Range: 25-115; Units: U/L; Status: F Lab Order: Basic Metabolic Profile; SPEC'M 02/26/16 12:49 Test: GLUCOSE, FASTING; Value: 96; Range: 70-105; Units: MG/DL; Status: F Test: BLOOD UREA NITROGEN; Value: 15; Range: 7-18; Units: MG/DL; Status: F Test: CREATININE FOR GFR; Value: 0.63; Range: 0.55-1.02; Units: MG/DL; Status: F Test: GLOMERULAR FILTRATION RATE; Value: > 60.0; Range: >60; Status: F Test: SODIUM LEVEL; Value: 141; Range: 136-145; Units: MEQ/L; Status: F Test: POTASSIUM SERUM; Value: 4.1; Range: 3.5-5.1; Units: MEQ/L; Status: F Test: CHLORIDE LEVEL; Value: 105; Range: 98-107; Units: MEQ/L; Status: F Test: CARBON DIOXIDE LEVEL; Value: 26; Range: 21-32; Units: MEQ/L; Status: F Test: ANION GAP; Value: 10; Range: 8-16; Units: MEQ/L; Status: F Test: CALCIUM LEVEL; Value: 8.5; Range: 8.5-10.1; Units: MG/DL; Status: F Test Note: ; Units are mL/min/1.73 m2 Chronic Kidney Disease Staging per NKF: Stage I & II GFR >=60 Normal to Mildly Decreased Stage III GFR 30-59 Moderately Decreased Stage IV GFR 15-29 Severely Decreased Stage V GFR <15 Very Little GFR Left ESRD GFR <15 on FEED PROJECT ENGINEER Lab Order: CBC with Diff; SPEC'M 02/26/16 12:49 Test: WHITE BLOOD COUNT; Value: 7.4; Range: 4.0-10.0; Units: K/mm3; Status: F Test: RED BLOOD COUNT; Value: 4.36; Range: 4.00-5.40; Units: M/mm3; Status: F Test: HEMOGLOBIN; Value: 13.7; Range: 12.0-16.0; Units: g/dl; Status: F Test: HEMATOCRIT; Value: 38.9; Range: 36.0-47.0; Units: %; Status: F Test: MEAN CORPUSCULAR VOLUME; Value: 89.3; Range: 80.0-96.0; Units: fl; Status: F Test: MEAN CORPUSCULAR HEMOGLOBIN; Value: 31.4; Range: 27.0-33.0; Units: pg; Status: F Test: MEAN CORPUSCULAR HGB CONC; Value: 35.2; Range: 32.0-36.5; Units: g/dl; Status: F Test: RED CELL DISTRIBUTION WIDTH; Value: 12.4; Range: 11.5-14.5; Units: %; Status: F Test: PLATELET COUNT, AUTOMATED; Value: 249; Range: 150-450; Units: k/mm3; Status: F Test: NEUTROPHILS %; Value: 73.7; Range: 36.0-66.0; Abnormal: Above high normal; Units: %; Status: F Test: LYMPH %; Value: 14.8; Range: 24.0-44.0; Abnormal: Below low normal; Units: %; Status: F Test: MONO %; Value: 5.6; Range: 0.0-5.0; Abnormal: Above high normal; Units: %; Status: F Test: EOS %; Value: 3.0; Range: 0.0-3.0; Units: %; Status: F Test: BASO %; Value: 0.4; Range: 0.0-1.0; Units: %; Status: F Test: LARGE UNSTAINED CELL %; Value: 2.6; Range: 0.0-4.0; Units: %; Status: F Test: NEUTROPHILS #; Value: 5.4; Range: 1.8-7.7; Units: K/mm3; Status: F Test: LYMPH #; Value: 1.1; Range: 1.5-4.5; Abnormal: Below low normal; Units: K/mm3; Status: F Test: MONO #; Value: 0.4; Range: 0.0-0.8; Units: K/mm3; Status: F Test: EOS #; Value: 0.2; Range: 0.0-0.50; Units: K/mm3; Status: F Test: BASO #; Value: 0.0; Range: 0.0-0.2; Units: K/mm3; Status: F Test: LARGE UNSTAINED CELL #; Value: 0.2; Range: 0.0-0.4; Units: K/mm3; Status: F Lab Order: Lipase; SPEC' 02/26/16 12:49 Test: LIPASE; Value: 106; Range: 73-393; Units: U/L; Status: F Lab Order: Liver Profile; SPEC'M 02/26/16 12:49 Test: AST/SGOT; Value: 22; Range: 15-37; Units: U/L; Status: F Test: ALT/SGPT; Value: 36; Range: 12-78; Units: U/L; Status: F Test: ALKALINE PHOSPHATASE; Value: 59; Range: 45-117; Units: U/L; Status: F Test: BILIRUBIN,TOTAL; Value: 0.5; Range: 0.2-1.0; Units: MG/DL; Status: F Test: BILIRUBIN,DIRECT; Value: 0.1; Range: 0.0-0.2; Units: MG/DL; Status: F Test: TOTAL PROTEIN; Value: 7.0; Range: 6.4-8.2; Units: GM/DL; Status: F Test: ALBUMIN; Value: 3.4; Range: 3.2-5.2; Units: GM/DL; Status: F Test: ALBUMIN/GLOBULIN RATIO; Value: 0.94; Range: 1.00-1.93; Abnormal: Below low normal; Status: F Radiology Order: Gallbladder US Test: Gallbladder US REASON FOR EXAMINATION: ruq/epigastric pain, nausea; Right upper quadrant ultrasound 02/26/2016; ; Indication right upper quadrant, epigastric pain; patient is not NPO; ; Findings: Gallbladder is without visualized cholelithiasis wall thickening or; pericholecystic fluid. Gallbladder wall 2.5 mm in thickness upper normal range.; There was tenderness upon scanning over the abdomen in general.; ; Common bile duct 4.6 mm transverse dimension within normal limits; ; There is mild diffuse fatty infiltration of liver.; ; The pancreatic head is partially obscured by bowel gas. Remainder of pancreas is; unremarkable.; ; Right kidney measures 13.3 x 4.9 x 4.2 cm and is without hydronephrosis. There; is normal right renal cortical echogenicity. There is no free fluid in; cul-de-sac; ; Impression: No evidence of cholelithiasis or biliary dilatation.; ; Mild diffuse fatty infiltration of liver. Pancreatic head is partially obscured; by bowel gas . Remainder of pancreas is unremarkable; ; Right kidney without hydronephrosis; ; ; Signed by; Maribell Oseguera MD 02/26/2016 01:08 P; Outcome: 14:24 Discharge ordered by Provider. ar2 14:33 Discharge Assessment: Patient awake, alert and oriented x 3. No cognitive and/or mb9 functional deficits noted. Patient verbalized understanding of disposition instructions. patient administered narcotics - no. The following High Risk Discharge criteria are identified: None. Discharged to home ambulatory, with significant other. Condition: good Condition: stable Condition: improved. Discharge instructions given to patient, Instructed on discharge instructions, follow up and referral plans. medication usage. Instructed on diet, Demonstrated understanding of instructions, medications, Pt was receptive of discharge instructions/ teaching. Prescriptions given X 2. No special radiology studies were completed. Property :Personal belongings accompany Pt. 14:35 Patient left the ED. mb9 Signatures: Dispatcher [employer] EDMS Patti Blum, RN RN srm Gertrude Monreal, Reg Reg gb Phoebe Shelton sm5 Jaron Encarnacion PA-C PA-C ar2 Boshart, Chelsea cmb Belles, Michael, RN RN mb9 Dominguez Villa, NON DESTRUCTIVE TESTING INSPECTOR NON DESTRUCTIVE TESTING INSPECTOR mdr Chart Complete MTDD
== END 2016-02-26 14:35 | disposition home or self-care (01) ==
LOC: M ED 11:14
DX: A08.4 Viral intestinal infection, unspecified (principal); D64.9 Anemia, unspecified; F32.9 Major depressive disorder, single episode, unspecified; F41.0 Panic disorder [episodic paroxysmal anxiety]; F43.10 Post-traumatic stress disorder, unspecified; R73.09 Other abnormal glucose; Z79.899 Other long term (current) drug therapy; Z88.8 Allergy status to other drugs, medicaments and biological substances

== ENCOUNTER 2016-03-08 21:27 | Emergency (ER) | payer OTHER ==
--- NOTE | 2016-03-08 23:35 | EDDOCDS ---
Nurse's Notes [facility] Name: Valarie Claudio Age: 35 yrs Sex: Female : 1980 Arrival Date: 03/08/2016 Time: 21:27 Bed Triage 3 Private MD: Edna Shaw Diagnosis: Pelvic and perineal pain Presentation: 03/08 21:31 Presenting complaint: Patient states: abdominal pain for 2 days, denies rs3 nausea/vomiting. queasy stomach on and off.sinus pain, cold for 3 days. Risk factors: the patient reports no vaginal bleeding. Adult Sepsis Screening: The patient does not have new or worsening altered mentation. Patient's respiratory rate is less than 22. Systolic blood pressure is greater than 100. Patient has a qSOFA score of 0- Negative Sepsis Screen. Suicide/Homicide risk assessment- the patient denies having any suicidal and/or homicidal ideations and does not present with any other emotional, behavioral or mental health complaints. 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 Transition of care: patient was not received from another setting of care. 21:31 Method Of Arrival: Walkin/Carried/Asstd rs3 21:31 Acuity: CHANDLER Level 3 rs3 Triage Assessment: 21:34 General: Appears in no apparent distress. Pain: Location: abdomen. HIV screening NA for rs3 this visit Offered previously. GI: No deficits noted. Historical: - Allergies: Phenergan (twitches); - Home Meds: 1. none - PMHx: PTSD; Depression; Anxiety; Anemia; Panic Attacks; - PSHx: none; - Social history: Smoking status: Patient states was never smoker of tobacco. No barriers to communication noted, The patient speaks fluent Armenian. - Family history: Not pertinent. - : The pt / caregiver states he / she is not on anticoagulants. Home medication list is obtained from the patient. - Exposure Risk Screening:: None identified. Screenin:28 Screening information is obtained from the patient. Fall risk: No risks identified. slm Assistance ADL's: requires no assistance with activities of daily living. Abuse/DV Screen: The patient / caregiver reports he/she is: not in a situation that causes fear, pain or injury. Nutritional screening: No deficits noted. Advance Directives: Currently, there is no health care proxy. There is no active DNR order. There is no living will. There is no Power of Signal Intelligence Analyst. Advance directive information has not previously been placed in an [facility] medical record. home support is adequate. Assessment: 23:27 Reassessment: Patient appears in no apparent distress at this time. General: Appears in slm no apparent distress, comfortable, Behavior is cooperative. General:. GI: Abdomen is non- distended. Vital Signs: 21:29 BP 115 / 68; Pulse 84; Resp 18 S; Temp 97.8(O); Pulse Ox 97% on R/A; Weight 86.18 kg dd6 (R); Height 5 ft. 6 in. (167.64 cm) (R); 21:29 Body Mass Index 30.67 (86.18 kg, 167.64 cm) dd6 Vitals: 21:29 Log In Time: March 08, 2016 at 21:27. dd6 ED Course: 21:29 Patient visited by Gonzales Wetzel PCA. dd6 21:29 Edna Shaw MD is Private Physician. dd6 21:29 Patient moved to Waiting dd6 21:30 Patient moved to Pre RCE dd6 21:33 Triage Initiated rs3 22:16 Patient moved to Triage 3 ct3 22:21 Driss Olivo PA is PHCP. btw 22:21 Christiano Oropeza DO is Attending Physician. btw 22:29 Patient visited by Driss Olivo PA. btw 22:43 Urine Culture Sent. ct3 23:16 Edna Shaw MD is Referral Physician. btw 23:29 The patient / caregiver is instructed regarding the plan of care and ED course. Patient slm has correct armband on for positive identification. Bed in low position. Call light in reach. Side rails up X 1. 23:29 No IV's were initiated during this patient's visit. No procedures done that require slm assistance. Point of Care Testing: Urine : 22:43 hCG Reading: Negative; Control Reading: Positive; ct3 Urine Dip: 22:43 pH: 5; ; Specific [place]: 1.025; Ketones: Negative; Glucose: Negative; Protein: Trace; kmg1 Leukocytes: Negative; Nitrite: Negative ; Blood: Negative; Bilirubin: Negative ; Urobilinogen: Normal Ranges: Order Results: There are currently no results for this order. Outcome: 23:17 Discharge ordered by Provider. btw 23:28 Discharge Assessment: Patient awake, alert and oriented x 3. No cognitive and/or slm functional deficits noted. Patient verbalized understanding of disposition instructions. patient administered narcotics - no. The following High Risk Discharge criteria are identified: None. Condition: good. Discharge instructions given to patient, Instructed on discharge instructions, follow up and referral plans. Demonstrated understanding of instructions, Pt was receptive of discharge instructions/ teaching. No special radiology studies were completed. Property :Personal belongings accompany Pt. 23:30 Patient left the ED. slm 23:34 Patient left the ED. slm Signatures: Catherine Reaves, RN RN kmg1 Gonzales Wetzel, REPAIR MANAGER REPAIR MANAGER dd6 Korina FuentesRN RN rs3 Driss Olivo PA PA btw Radha Call, REPAIR MANAGER REPAIR MANAGER ct3 Kelly Coppola,AGENT TELEGRAPHER AGENT TELEGRAPHER slm Corrections: (The following items were deleted from the chart) 21:34 21:31 Acuity: CHANDLER Level 4 rs3 rs3 MTDD
--- NOTE | 2016-03-08 23:35 | EDDOCDS ---
Physician Documentation [facility] Name: Valarie Claudio Age: 35 yrs Sex: Female : 1980 Arrival Date: 03/08/2016 Time: 21:27 Bed Triage 3 Private MD: Edna Shaw Disposition: 03/08/16 23:17 Discharged to Home/Self Care. Impression: Pelvic and perineal pain. - Condition is Stable. - Discharge Instructions: Pelvic Pain, Female. - Medication Reconciliation, Local Pharmacy Hours form. - Follow up: Edna Shaw MD; When: Call to arrange an appointment; Reason: Further diagnostic work-up, Recheck today's complaints, Continuance of care. Follow up: Emergency Department; When: As soon as possible; Reason: Worsening of conditions. - Problem is new. - Symptoms are unchanged. Historical: - Allergies: Phenergan (twitches); - Home Meds: 1. none - PMHx: PTSD; Depression; Anxiety; Anemia; Panic Attacks; - PSHx: none; - Social history: Smoking status: Patient states was never smoker of tobacco. No barriers to communication noted, The patient speaks fluent Serbian. - Family history: Not pertinent. - : The pt / caregiver states he / she is not on anticoagulants. Home medication list is obtained from the patient. - Exposure Risk Screening:: None identified. Vital Signs: 03/08 21:29 BP 115 / 68; Pulse 84; Resp 18 S; Temp 97.8(O); Pulse Ox 97% on R/A; Weight 86.18 kg / dd6 189.99 lbs (R); Height 5 ft. 6 in. (167.64 cm) (R); 21:29 Body Mass Index 30.67 (86.18 kg, 167.64 cm) dd6 MDM: 22:32 Urine Dip ordered. btw 22:32 UCG by Nursing ordered. btw 22:35 Urine Culture Ordered. EDNC 23:28 Financial registration complete. [email or web address] Point of Care Testing: Urine : 22:43 hCG Reading: Negative; Control Reading: Positive; ct3 Urine Dip: 22:43 pH: 5; ; Specific [place]: 1.025; Ketones: Negative; Glucose: Negative; Protein: Trace; kmg1 Leukocytes: Negative; Nitrite: Negative ; Blood: Negative; Bilirubin: Negative ; Urobilinogen: Normal Ranges: Signatures: Dispatcher [employer] Korina Davidson,YENIFER RN rs3 Driss Olivo PA PA btw Kelly Coppola LPN LPN slm Karissa Pak, Reg Reg ks16 MTDD
--- NOTE | 2016-03-11 00:35 | EDDOCDS ---
Physician Documentation [facility] Name: Valarie Claudio Age: 35 yrs Sex: Female : 1980 Arrival Date: 03/08/2016 Time: 21:27 Bed Triage 3 Private MD: Edna Shaw Disposition: 03/08/16 23:17 Discharged to Home/Self Care. Impression: Pelvic and perineal pain. - Condition is Stable. - Discharge Instructions: Pelvic Pain, Female. - Medication Reconciliation, Local Pharmacy Hours form. - Follow up: Edna Shaw MD; When: Call to arrange an appointment; Reason: Further diagnostic work-up, Recheck today's complaints, Continuance of care. Follow up: Emergency Department; When: As soon as possible; Reason: Worsening of conditions. - Problem is new. - Symptoms are unchanged. Historical: - Allergies: Phenergan (twitches); - Home Meds: 1. none - PMHx: PTSD; Depression; Anxiety; Anemia; Panic Attacks; - PSHx: none; - Social history: Smoking status: Patient states was never smoker of tobacco. No barriers to communication noted, The patient speaks fluent Macedonian. - Family history: Not pertinent. - : The pt / caregiver states he / she is not on anticoagulants. Home medication list is obtained from the patient. - Exposure Risk Screening:: None identified. Vital Signs: 03/08 21:29 BP 115 / 68; Pulse 84; Resp 18 S; Temp 97.8(O); Pulse Ox 97% on R/A; Weight 86.18 kg / dd6 189.99 lbs (R); Height 5 ft. 6 in. (167.64 cm) (R); 21:29 Body Mass Index 30.67 (86.18 kg, 167.64 cm) dd6 MDM: 22:32 Urine Dip ordered. btw 22:32 UCG by Nursing ordered. btw 22:35 Urine Culture Ordered. EDMS 23:28 Financial registration complete. [email or web address] 03/09 00:01 [facility] Payment Agreement was scanned into [employer] and attached to record. hs2 18:33 T-Sheet-- Draft Copy was scanned into [employer] and attached to record. klr Point of Care Testing: Urine : 03/08 22:43 hCG Reading: Negative; Control Reading: Positive; ct3 Urine Dip: 22:43 pH: 5; ; Specific [place]: 1.025; Ketones: Negative; Glucose: Negative; Protein: Trace; kmg1 Leukocytes: Negative; Nitrite: Negative ; Blood: Negative; Bilirubin: Negative ; Urobilinogen: Normal Ranges: Signatures: Dispatcher [employer] Korina Davidson RN RN rs3 Driss Olivo PA PA btw Kelly Coppola,BEENA GARCIAN Karissa Wright, Reg Reg ks16 Dona Muñoz, Reg Reg hs2 Cassandra Tsang klshamar The chart was reviewed and I authenticate all verbal orders and agree with the evaluation and treatment provided.Attachments: 03/09 00:01 [facility] [place] Agreement hs2 18:33 T-Sheet-- Draft Copy klr Chart Complete MTDD
--- NOTE | 2016-03-11 00:35 | EDDOCDS ---
Physician Documentation [facility] Name: Valarie Claudio Age: 35 yrs Sex: Female : 1980 Arrival Date: 03/08/2016 Time: 21:27 Bed Triage 3 Private MD: Edna Shaw Disposition: 03/08/16 23:17 Discharged to Home/Self Care. Impression: Pelvic and perineal pain. - Condition is Stable. - Discharge Instructions: Pelvic Pain, Female. - Medication Reconciliation, Local Pharmacy Hours form. - Follow up: Edna Shaw MD; When: Call to arrange an appointment; Reason: Further diagnostic work-up, Recheck today's complaints, Continuance of care. Follow up: Emergency Department; When: As soon as possible; Reason: Worsening of conditions. - Problem is new. - Symptoms are unchanged. Historical: - Allergies: Phenergan (twitches); - Home Meds: 1. none - PMHx: PTSD; Depression; Anxiety; Anemia; Panic Attacks; - PSHx: none; - Social history: Smoking status: Patient states was never smoker of tobacco. No barriers to communication noted, The patient speaks fluent Divehi. - Family history: Not pertinent. - : The pt / caregiver states he / she is not on anticoagulants. Home medication list is obtained from the patient. - Exposure Risk Screening:: None identified. Vital Signs: 03/08 21:29 BP 115 / 68; Pulse 84; Resp 18 S; Temp 97.8(O); Pulse Ox 97% on R/A; Weight 86.18 kg / dd6 189.99 lbs (R); Height 5 ft. 6 in. (167.64 cm) (R); 21:29 Body Mass Index 30.67 (86.18 kg, 167.64 cm) dd6 MDM: 22:32 Urine Dip ordered. btw 22:32 UCG by Nursing ordered. btw 22:35 Urine Culture Ordered. EDMS 23:28 Financial registration complete. [email or web address] 03/09 00:01 [facility] Payment Agreement was scanned into [employer] and attached to record. hs2 18:33 T-Sheet-- Draft Copy was scanned into [employer] and attached to record. klr Point of Care Testing: Urine : 03/08 22:43 hCG Reading: Negative; Control Reading: Positive; ct3 Urine Dip: 22:43 pH: 5; ; Specific [place]: 1.025; Ketones: Negative; Glucose: Negative; Protein: Trace; kmg1 Leukocytes: Negative; Nitrite: Negative ; Blood: Negative; Bilirubin: Negative ; Urobilinogen: Normal Ranges: Signatures: Dispatcher [employer] Korina Davidson RN RN rs3 Driss Olivo PA PA btw Kelly Coppola,BEENA GARCIAN Karissa Wright, Reg Reg ks16 Dona Muñoz, Reg Reg hs2 Cassandra Tsang klshamar The chart was reviewed and I authenticate all verbal orders and agree with the evaluation and treatment provided.Attachments: 03/09 00:01 [facility] Payment Agreement hs2 18:33 T-Sheet-- Draft Copy klr Chart Complete MTDD
--- NOTE | 2016-03-11 00:35 | EDDOCDS ---
Nurse's Notes [facility] Name: Valarie Claudio Age: 35 yrs Sex: Female : 1980 Arrival Date: 03/08/2016 Time: 21:27 Bed Triage 3 Private MD: Edna Shaw Diagnosis: Pelvic and perineal pain Presentation: 03/08 21:31 Presenting complaint: Patient states: abdominal pain for 2 days, denies rs3 nausea/vomiting. queasy stomach on and off.sinus pain, cold for 3 days. Risk factors: the patient reports no vaginal bleeding. Adult Sepsis Screening: The patient does not have new or worsening altered mentation. Patient's respiratory rate is less than 22. Systolic blood pressure is greater than 100. Patient has a qSOFA score of 0- Negative Sepsis Screen. Suicide/Homicide risk assessment- the patient denies having any suicidal and/or homicidal ideations and does not present with any other emotional, behavioral or mental health complaints. Status: Patient is not a pharmaceutical service representative or dependent. Transition of care: patient was not received from another setting of care. 21:31 Method Of Arrival: Walkin/Carried/Asstd rs3 21:31 Acuity: CHANDLER Level 3 rs3 Triage Assessment: 21:34 General: Appears in no apparent distress. Pain: Location: abdomen. HIV screening NA for rs3 this visit Offered previously. GI: No deficits noted. Historical: - Allergies: Phenergan (twitches); - Home Meds: 1. none - PMHx: PTSD; Depression; Anxiety; Anemia; Panic Attacks; - PSHx: none; - Social history: Smoking status: Patient states was never smoker of tobacco. No barriers to communication noted, The patient speaks fluent Finnish. - Family history: Not pertinent. - : The pt / caregiver states he / she is not on anticoagulants. Home medication list is obtained from the patient. - Exposure Risk Screening:: None identified. Screenin:28 Screening information is obtained from the patient. Fall risk: No risks identified. slm Assistance ADL's: requires no assistance with activities of daily living. Abuse/DV Screen: The patient / caregiver reports he/she is: not in a situation that causes fear, pain or injury. Nutritional screening: No deficits noted. Advance Directives: Currently, there is no health care proxy. There is no active DNR order. There is no living will. There is no Power of Weight Inspector. Advance directive information has not previously been placed in an [facility] medical record. home support is adequate. Assessment: 23:27 Reassessment: Patient appears in no apparent distress at this time. General: Appears in slm no apparent distress, comfortable, Behavior is cooperative. General:. GI: Abdomen is non- distended. Vital Signs: 21:29 BP 115 / 68; Pulse 84; Resp 18 S; Temp 97.8(O); Pulse Ox 97% on R/A; Weight 86.18 kg dd6 (R); Height 5 ft. 6 in. (167.64 cm) (R); 21:29 Body Mass Index 30.67 (86.18 kg, 167.64 cm) dd6 Vitals: 21:29 Log In Time: March 08, 2016 at 21:27. dd6 ED Course: 21:29 Patient visited by Gonzales Wetzel PCA. dd6 21:29 Edna Shaw MD is Private Physician. dd6 21:29 Patient moved to Waiting dd6 21:30 Patient moved to Pre RCE dd6 21:33 Triage Initiated rs3 22:16 Patient moved to Triage 3 ct3 22:21 Driss Olivo PA is PHCP. btw 22:21 Christiano Oropeza DO is Attending Physician. btw 22:29 Patient visited by Driss Olivo PA. btw 22:43 Urine Culture Sent. ct3 23:16 Edna Shaw MD is Referral Physician. btw 23:29 The patient / caregiver is instructed regarding the plan of care and ED course. Patient slm has correct armband on for positive identification. Bed in low position. Call light in reach. Side rails up X 1. 23:29 No IV's were initiated during this patient's visit. No procedures done that require slm assistance. 03/09 00:01 [facility] [place] was scanned into VPEP and attached to record. hs2 01:35 Patient name changed from Kelliejo\S\\S\Claudio\S\ to Vibha\S\Nano\S\Claudio. EDMS 01:37 Patient name changed from Vibha\S\Nano\S\Claudio\S\ to Kelliejo\S\ \S\González. EDMS 18:33 T-Sheet-- Draft Copy was scanned into VPEP and attached to record. erlinda Point of Care Testing: Urine : 03/08 22:43 hCG Reading: Negative; Control Reading: Positive; ct3 Urine Dip: 22:43 pH: 5; ; Specific [place]: 1.025; Ketones: Negative; Glucose: Negative; Protein: Trace; kmg1 Leukocytes: Negative; Nitrite: Negative ; Blood: Negative; Bilirubin: Negative ; Urobilinogen: Normal Ranges: Order Results: Lab Order: Urine Culture; SPEC'M 03/08/16 22:36 Test: URINE CULTURE; Value: <EXTERNAL COMMENT eCWMed> FULL REPORT IN LAB NOTES (eCW and Medent).; Status: F Test: URINE CULTURE; Value: URINE CULTURE RESULT NO GROWTH; Status: F Outcome: 23:17 Discharge ordered by Provider. btw 23:28 Discharge Assessment: Patient awake, alert and oriented x 3. No cognitive and/or slm functional deficits noted. Patient verbalized understanding of disposition instructions. patient administered narcotics - no. The following High Risk Discharge criteria are identified: None. Condition: good. Discharge instructions given to patient, Instructed on discharge instructions, follow up and referral plans. Demonstrated understanding of instructions, Pt was receptive of discharge instructions/ teaching. No special radiology studies were completed. Property :Personal belongings accompany Pt. 23:30 Patient left the ED. slm 23:34 Patient left the ED. slm Signatures: Dispatcher [facility] EDMS Catherine Reaves RN RN kmg1 Gonzales Wetzel, BLOOM CONVEYOR OPERATOR BLOOM CONVEYOR OPERATOR dd6 Korina Fuentes RN RN rs3 Driss Olivo PA PA btw Radha Call, BLOOM CONVEYOR OPERATOR BLOOM CONVEYOR OPERATOR ct3 Kelly Coppola LPN LPN slm Dona Muñoz, Reg Reg hs2 Cassandra Tsang shamar Corrections: (The following items were deleted from the chart) 21:34 21:31 Acuity: CHANDLER Level 4 rs3 rs3 Chart Complete MTDD
== END 2016-03-08 23:34 | disposition home or self-care (01) ==
LOC: M ED 21:27
DX: R10.2 Pelvic and perineal pain (principal); F43.10 Post-traumatic stress disorder, unspecified; F41.0 Panic disorder [episodic paroxysmal anxiety]; F32.9 Major depressive disorder, single episode, unspecified; D64.9 Anemia, unspecified; Z88.8 Allergy status to other drugs, medicaments and biological substances

== ENCOUNTER → 2016-03-19 | Outpatient (CLI) | payer OTHER ==
[2016-03-19 14:27] LABS: CONTROL LINE HCG INT CTR LINE PRESENT
[2016-03-19 14:30] LABS: BASO % 0.6 % (0.0-1.0); EOS # 0.2 K/mm3 (0.0-0.50); EOS % 1.9 % (0.0-3.0); LARGE UNSTAINED CELL # 0.2 K/mm3 (0.0-0.4); LARGE UNSTAINED CELL % 2.3 % (0.0-4.0); LYMPH # 2.7 K/mm3 (1.5-4.5); LYMPH % 32.1 % (24.0-44.0); MEAN CORPUSCULAR HEMOGLOBIN 30.7 pg (27.0-33.0); MEAN CORPUSCULAR VOLUME 90.5 fl (80.0-96.0); MONO # 0.4 K/mm3 (0.0-0.8); MONO % 5.2 % (0.0-5.0); NEUTROPHILS # 4.8 K/mm3 (1.8-7.7); NEUTROPHILS % 57.9 % (36.0-66.0); PLATELET COUNT, AUTOMATED 312 k/mm3 (150-450); RED CELL DISTRIBUTION WIDTH 12.3 % (11.5-14.5); WHITE BLOOD COUNT 8.3 K/mm3 (4.0-10.0)
[2016-03-19 14:43] LABS: ALBUMIN 3.7 GM/DL (3.2-5.2); ALBUMIN/GLOBULIN RATIO 0.97 (1.00-1.93); ALKALINE PHOSPHATASE 73 U/L (45-117); ALT/SGPT 29 U/L (12-78); AMYLASE 33 U/L (25-115); ANION GAP 9 MEQ/L (8-16); AST/SGOT 18 U/L (15-37); BILIRUBIN,TOTAL 0.3 MG/DL (0.2-1.0); BLOOD UREA NITROGEN 16 MG/DL (7-18); CARBON DIOXIDE LEVEL 29 MEQ/L (21-32); CHLORIDE LEVEL 103 MEQ/L (98-107); CREATININE FOR GFR 0.75 MG/DL (0.55-1.02); GLOMERULAR FILTRATION RATE > 60.0 (>60); GLUCOSE, FASTING 97 MG/DL (70-105); POTASSIUM SERUM 4.1 MEQ/L (3.5-5.1); SODIUM LEVEL 141 MEQ/L (136-145); TOTAL PROTEIN 7.5 GM/DL (6.4-8.2)
== END | disposition home or self-care (01) ==
LOC: M LAB 13:40
PROVIDERS: ATTEND Family Medicine
DX: R10.84 Generalized abdominal pain (principal); N92.6 Irregular menstruation, unspecified

== ENCOUNTER 2016-06-16 11:15 | Emergency (ER) | payer OTHER ==
[~2016-06-16] VITALS: Ht 167.6 cm; Wt 99.8 kg
[2016-06-16 11:15] VITALS: BP 132/68
[2016-06-16] MEDS ORDERED: MULT1TAB18 PO (11:21)
== END 2016-06-16 12:53 | disposition home or self-care (01) ==
LOC: M ED 12:11
DX: F07.81 Postconcussional syndrome (principal); F41.9 Anxiety disorder, unspecified; Z88.8 Allergy status to other drugs, medicaments and biological substances

== ENCOUNTER 2016-06-24 02:33 | Emergency (ER) | payer OTHER ==
[~2016-06-24] VITALS: Ht 167.6 cm; Wt 99.8 kg
[~2016-06-24 02:33] MED LIST changes: +MULT1TAB18 PO
[2016-06-24 03:13] VITALS: BP 148/78
== END 2016-06-24 05:04 | disposition left against medical advice (07) ==
LOC: M ED 03:41
DX: Z53.29 Procedure and treatment not carried out because of patient's decision for other reasons (principal)

== ENCOUNTER 2016-08-07 16:46 | Emergency (ER) | payer OTHER ==
[~2016-08-07] VITALS: Ht 167.6 cm; Wt 105.0 kg
[2016-08-07] MEDS ORDERED: HYDR-3363 (16:59)
[2016-08-07] MEDS ORDERED: LORA10TA2 (16:59)
[2016-08-07] MEDS ORDERED: FLUT1SPR2 (16:59)
[2016-08-07 19:14] VITALS: BP 127/78
== END 2016-08-07 19:16 | disposition home or self-care (01) ==
LOC: M ED 16:46
DX: F41.9 Anxiety disorder, unspecified (principal); F43.9 Reaction to severe stress, unspecified; M51.37 Other intervertebral disc degeneration, lumbosacral region; Z79.899 Other long term (current) drug therapy; Z88.8 Allergy status to other drugs, medicaments and biological substances

== ENCOUNTER 2016-09-29 13:02 | Emergency (ER) | payer OTHER ==
[~2016-09-29] VITALS: Ht 167.6 cm; Wt 114.0 kg
[~2016-09-29 13:02] MED LIST changes: +FLUT1SPR2; +HYDR-3363; +LORA10TA2
[2016-09-29 14:16] VITALS: BP 130/75
== END 2016-09-29 14:48 | disposition home or self-care (01) ==
LOC: M ED 13:02
DX: F32.9 Major depressive disorder, single episode, unspecified (principal); F41.9 Anxiety disorder, unspecified; F43.10 Post-traumatic stress disorder, unspecified; Z88.8 Allergy status to other drugs, medicaments and biological substances; Z79.899 Other long term (current) drug therapy

== ENCOUNTER → 2017-01-22 | Outpatient (CLI) | payer OTHER ==
--- NOTE | 2017-01-22 15:11 | REP ---
Chest x-ray: Two views. History: Cough . Comparison study: January 06, 2016 . Findings: The lungs are well inflated and free of infiltrate. The pleural angles are sharp. The heart size is normal. Pulmonary vasculature is not increased. No significant bony abnormality is seen. Impression: Negative chest x-ray. Signed by Keyshawn Klein MD 01/22/2017 03:02 P
--- NOTE | 2017-01-22 16:30 | REP ---
KUB: Two views: History: Cough. Comparison study: June 01, 2015. Findings: Bowel gas pattern is normal. There is a phlebolith in the left pelvis. Psoas margins are symmetric. Flank stripes are intact. No mass, organomegaly or pathologic calcification is seen. Impression: Unremarkable abdominal films. Signed by Keyshawn Klein MD 01/23/2017 08:15 A
== END ==
LOC: M RAD 12:51
PROVIDERS: ATTEND Nurse Practitioner Adult Health
DX: R10.9 Unspecified abdominal pain (principal); R05 Cough

== ENCOUNTER 2017-02-27 00:02 | Emergency (ER) | payer OTHER ==
[2017-02-27] MEDS: NS 1,000 ML IV (01:13)
[2017-02-27 01:14] LABS: BASO % 0.3 % (0.0-1.0); EOS # 0.1 10^3/uL (0.0-0.50); EOS % 1.1 % (0.0-3.0); HEMATOCRIT 42.2 % (36.0-47.0); HEMOGLOBIN 14.3 g/dl (12.0-16.0); IMMATURE GRANULOCYTE # 0.1 10^3/uL (0-0); IMMATURE GRANULOCYTE % 0.8 % (0-0); LYMPH # 2.1 10^3/uL (1.5-4.5); LYMPH % 19.7 % (24.0-44.0); MEAN CORPUSCULAR HEMOGLOBIN 30.5 pg (27.0-33.0); MEAN CORPUSCULAR HGB CONC 33.9 g/dl (32.0-36.5); MONO # 0.6 10^3/uL (0.0-0.8); MONO % 5.9 % (0.0-5.0); NEUTROPHILS # 7.5 10^3/uL (1.8-7.7); NEUTROPHILS % 72.2 % (36.0-66.0); PLATELET COUNT, AUTOMATED 296 10^3/uL (150-450); RED BLOOD COUNT 4.69 10^6/uL (4.00-5.40); RED CELL DISTRIBUTION WIDTH 12.3 % (11.5-14.5); WHITE BLOOD COUNT 10.4 10^3/uL (4.0-10.0)
[2017-02-27 01:33] LABS: ANION GAP 7 MEQ/L (8-16); BLOOD UREA NITROGEN 19 MG/DL (7-18); CARBON DIOXIDE LEVEL 28 MEQ/L (21-32); CHLORIDE LEVEL 105 MEQ/L (98-107); CREATININE FOR GFR 0.81 MG/DL (0.55-1.02); GLOMERULAR FILTRATION RATE > 60.0 (>60); GLUCOSE, FASTING 103 MG/DL (70-105); POTASSIUM SERUM 4.1 MEQ/L (3.5-5.1); SODIUM LEVEL 140 MEQ/L (136-145)
[2017-02-27 01:39] LABS: CPK CREATINE PHOSPHOKINASE 192 U/L (26-192)
[2017-02-27 01:41] LABS: APPEARANCE, URINE HAZY (CLEAR); BACTERIA, URINE AUTO NEGATIVE (NEGATIVE); BILIRUBIN, URINE AUTO NEGATIVE (NEGATIVE); BLOOD, URINE BLOOD NEGATIVE (NEGATIVE); COLOR, URINE YELLOW (YELLOW); GLUCOSE, URINE (UA) AUTO NEGATIVE (NEGATIVE); KETONE, URINE AUTO NEGATIVE (NEGATIVE); LEUKOCYTE ESTERASE, URINE AUTO NEGATIVE (NEGATIVE); MUCUS, URINE SMALL (NEGATIVE); NITRITE, URINE AUTO NEGATIVE (NEGATIVE); PROTEIN, URINE AUTO NEGATIVE (NEGATIVE); RBC, URINE AUTO 1 /HPF (0-3); SPECIFIC GRAVITY URINE AUTO 1.023 (1.002-1.035); SQUAMOUS EPITHELIAL CELL UR AU 1 /HPF (0-6); UROBILINOGEN, URINE AUTO 0.2 mg/dL (0.0-2.0); WBC, URINE AUTO 0 /HPF (0-3)
== END 2017-02-27 02:37 | disposition home or self-care (01) ==
LOC: M ED 00:02
DX: F41.9 Anxiety disorder, unspecified (principal)
CPT/HCPCS: 82550

== ENCOUNTER 2017-04-24 13:14 | Emergency (ER) | payer OTHER | END 2017-04-24 15:13 | disposition home or self-care (01) | LOC: M ED 13:14 | DX: F41.0 Panic disorder [episodic paroxysmal anxiety] (principal); K76.0 Fatty (change of) liver, not elsewhere classified; Z88.8 Allergy status to other drugs, medicaments and biological substances; Z79.899 Other long term (current) drug therapy | CPT/HCPCS: 99284 ==

== ENCOUNTER 2017-08-07 07:23 | Inpatient (IN) | payer MEDICAID, OTHER ==
[2017-08-07 08:07] LABS: BASO % 0.4 % (0.0-1.0); EOS # 0.1 10^3/uL (0.0-0.50); HEMATOCRIT 39.9 % (36.0-47.0); HEMOGLOBIN 13.8 g/dl (12.0-15.5); IMMATURE GRANULOCYTE % 0.4 % (0-3.0); LYMPH # 1.6 10^3/uL (1.5-4.5); LYMPH % 22.8 % (24.0-44.0); MEAN CORPUSCULAR HEMOGLOBIN 30.7 pg (27.0-33.0); MEAN CORPUSCULAR HGB CONC 34.6 g/dl (32.0-36.5); MEAN CORPUSCULAR VOLUME 88.7 fl (80.0-96.0); MONO # 0.5 10^3/uL (0.0-0.8); MONO % 7.4 % (0.0-5.0); NEUTROPHILS # 4.7 10^3/uL (1.8-7.7); PLATELET COUNT, AUTOMATED 255 10^3/uL (150-450); RED CELL DISTRIBUTION WIDTH 11.9 % (11.5-14.5); WHITE BLOOD COUNT 7.1 10^3/uL (4.0-10.0)
[2017-08-07 08:13] LABS: CONTROL LINE HCG INT CTR LINE PRESENT; HCG, SERUM QUALITATIVE NEGATIVE (NEGATIVE)
[2017-08-07 08:30] LABS: ALBUMIN 3.5 GM/DL (3.2-5.2); ALBUMIN/GLOBULIN RATIO 0.95 (1.00-1.93); ALKALINE PHOSPHATASE 70 U/L (45-117); ALT/SGPT 51 U/L (12-78); ANION GAP 10 MEQ/L (8-16); AST/SGOT 33 U/L (7-37); BILIRUBIN,DIRECT 0.1 MG/DL (0.0-0.2); BILIRUBIN,TOTAL 0.7 MG/DL (0.2-1.0); BLOOD UREA NITROGEN 16 MG/DL (7-18); CALCIUM LEVEL 8.2 MG/DL (8.5-10.1); CARBON DIOXIDE LEVEL 24 MEQ/L (21-32); CHLORIDE LEVEL 108 MEQ/L (98-107); CREATININE FOR GFR 0.76 MG/DL (0.55-1.30); ETHYL ALCOHOL (ETHANOL) 0.004 % (0.000-0.010); GLOMERULAR FILTRATION RATE > 60.0 (>60); GLUCOSE, FASTING 110 MG/DL (70-100); POTASSIUM SERUM 4.2 MEQ/L (3.5-5.1); SALICYLATE LEVEL < 1.7 MG/DL (5.0-30.0); SODIUM LEVEL 142 MEQ/L (136-145); TOTAL PROTEIN 7.2 GM/DL (6.4-8.2)
[2017-08-07 08:33] LABS: ACETAMINOPHEN LEVEL < 2.0 UG/ML (10.0-30.0)
[2017-08-07 09:14] LABS: AMPHETAMINES LEVEL URINE NEGATIVE (NEGATIVE); BARBITURATES URINE NEGATIVE (NEGATIVE); BENZODIAZEPINES URINE NEGATIVE (NEGATIVE); CANNABINOIDS URINE NEGATIVE (NEGATIVE); COCAINE METABOLITE URINE NEGATIVE (NEGATIVE); METHADONE URINE NEGATIVE (NEGATIVE); OPIATES URINE NEGATIVE (NEGATIVE); PHENCYCLIDINE URINE NEGATIVE (NEGATIVE)
[2017-08-07 15:07] LABS: ESTIMATED AVERAGE GLUCOSE 94 MG/DL (60-110); HEMOGLOBIN A1c 4.9 %
[2017-08-07] MEDS ORDERED: MOM 30ML SUSPENSION UDC PO (15:30)
[2017-08-07] MEDS ORDERED: MAALOX 30 ML SUSP *UDC PO (15:30)
[2017-08-07] MEDS ORDERED: diphenhydrAMINE 25 MG CAP PO (15:30)
[2017-08-07] MEDS: ACETAMINOPHEN TAB 650MG DOSE (2X325MG) PO (16:30)
[2017-08-07] MEDS: diphenhydrAMINE 25 MG CAP PO (21:30)
[2017-08-08] MEDS: buPROPion 75 MG TAB PO (08:20)
[2017-08-08] MEDS: ACETAMINOPHEN TAB 650MG DOSE (2X325MG) PO (21:55)
[2017-08-08] MEDS: diphenhydrAMINE 25 MG CAP PO (21:56)
[2017-08-09] MEDS: buPROPion 75 MG TAB PO (08:19)
[2017-08-09] MEDS: diphenhydrAMINE 25 MG CAP PO (22:01)
[2017-08-10] MEDS: buPROPion 75 MG TAB PO (09:09)
[2017-08-10] MEDS: ACETAMINOPHEN TAB 650MG DOSE (2X325MG) PO ×2 (09:10→21:43)
[2017-08-10] MEDS: diphenhydrAMINE 25 MG CAP PO (21:42)
[2017-08-11] MEDS: buPROPion 75 MG TAB PO (08:53)
[2017-08-11] MEDS: ACETAMINOPHEN TAB 650MG DOSE (2X325MG) PO (12:19)
[2017-08-11] MEDS: diphenhydrAMINE 25 MG CAP PO (21:32)
[2017-08-12] MEDS: ALBUTEROL 90 MCG/ACT 8GM HFA INHALER INH (06:14)
[2017-08-12] MEDS: buPROPion 75 MG TAB PO (08:13)
[2017-08-12] MEDS: ACETAMINOPHEN TAB 650MG DOSE (2X325MG) PO (18:54)
[2017-08-12] MEDS: diphenhydrAMINE 25 MG CAP PO (21:11)
[2017-08-13] MEDS: buPROPion 75 MG TAB PO (08:08)
== END 2017-08-13 11:18 | disposition home or self-care (01) | DRG 880 ==
LOC: M ED 07:23 → M ED INP 11:07 → M PSY 12:07
DX: F41.1 Generalized anxiety disorder (principal); F43.12 Post-traumatic stress disorder, chronic; F60.3 Borderline personality disorder; Z79.899 Other long term (current) drug therapy; Z88.8 Allergy status to other drugs, medicaments and biological substances; E66.9 Obesity, unspecified; Z68.37 Body mass index [BMI] 37.0-37.9, adult; M25.562 Pain in left knee; J45.909 Unspecified asthma, uncomplicated; M54.9 Dorsalgia, unspecified

== ENCOUNTER 2018-01-04 10:06 | Emergency (ER) | payer OTHER, MEDICAID ==
[2018-01-04 11:08] LABS: KETONE, URINE AUTO RFX NEGATIVE (NEGATIVE); LEUKOCYTE ESTERASE UR AUTO RFX NEGATIVE (NEGATIVE); MUCUS, URINE RFX SMALL (NEGATIVE); NITRITE, URINE AUTO RFX NEGATIVE (NEGATIVE); RBC, URINE AUTO RFX 3 /HPF (0-3); SPECIFIC GRAVITY UR AUTO RFX 1.027 (1.002-1.035); SQUAM EPITHELIAL CELL UR AURFX 1 /HPF (0-6); WBC, URINE AUTO RFX 2 /HPF (0-3)
[2018-01-04] MEDS: NS 1,000 ML IV (12:58)
[2018-01-04] MEDS: ONDANSETRON 4MG/2ML VIAL (J2405) IV (12:59)
[2018-01-04] MEDS: KETOROLAC 30 MG/ML VIAL (J1885) IV (12:59)
[2018-01-04 13:04] LABS: BASO # 0.1 10^3/uL (0.0-0.2); BASO % 0.5 % (0.0-1.0); EOS # 0.2 10^3/uL (0.0-0.50); EOS % 1.7 % (0.0-3.0); HEMATOCRIT 42.9 % (36.0-47.0); HEMOGLOBIN 14.6 g/dl (12.0-15.5); IMMATURE GRANULOCYTE % 0.3 % (0-3.0); LYMPH # 2.9 10^3/uL (1.5-4.5); MEAN CORPUSCULAR HEMOGLOBIN 30.7 pg (27.0-33.0); MEAN CORPUSCULAR VOLUME 90.1 fl (80.0-96.0); MONO # 0.8 10^3/uL (0.0-0.8); NEUTROPHILS # 6.9 10^3/uL (1.8-7.7); NEUTROPHILS % 63.5 % (36.0-66.0); PLATELET COUNT, AUTOMATED 324 10^3/uL (150-450); RED BLOOD COUNT 4.76 10^6/uL (4.00-5.40); WHITE BLOOD COUNT 10.8 10^3/uL (4.0-10.0)
[2018-01-04 13:18] LABS: ALBUMIN 3.8 GM/DL (3.2-5.2); ALKALINE PHOSPHATASE 74 U/L (45-117); ALT/SGPT 40 U/L (12-78); AMYLASE 33 U/L (25-115); ANION GAP 6 MEQ/L (8-16); AST/SGOT 27 U/L (7-37); BILIRUBIN,DIRECT < 0.1 MG/DL (0.0-0.2); BILIRUBIN,TOTAL 0.4 MG/DL (0.2-1.0); BLOOD UREA NITROGEN 18 MG/DL (7-18); CALCIUM LEVEL 8.8 MG/DL (8.5-10.1); CARBON DIOXIDE LEVEL 26 MEQ/L (21-32); CHLORIDE LEVEL 105 MEQ/L (98-107); CREATININE FOR GFR 0.71 MG/DL (0.55-1.30); GLOMERULAR FILTRATION RATE > 60.0 (>60); GLUCOSE, FASTING 108 MG/DL (70-100); LIPASE 141 U/L (73-393); POTASSIUM SERUM 4.4 MEQ/L (3.5-5.1); SODIUM LEVEL 137 MEQ/L (136-145); TOTAL PROTEIN 7.6 GM/DL (6.4-8.2)
[2018-01-04] MEDS ORDERED: ISOVUE-370 76% 100ML VIAL (Q9967) As Ordered (13:24)
== END 2018-01-04 15:13 | disposition home or self-care (01) ==
LOC: M ED 10:06
DX: M54.5 Low back pain (principal); J45.909 Unspecified asthma, uncomplicated; F41.9 Anxiety disorder, unspecified; F43.10 Post-traumatic stress disorder, unspecified; Z79.899 Other long term (current) drug therapy; Z88.8 Allergy status to other drugs, medicaments and biological substances
CPT/HCPCS: J2405

== ENCOUNTER → 2018-02-11 | Outpatient (REF) | payer OTHER ==
[~2018-02-11] MED LIST changes: +B-COTAB10 PO; +BANO25CA; +BENA25CA4 PO; +BUPR150T3; +BUPR75TA5 PO; +CRUTMIS XX; +DIPH25CA PO; +LORA-243; -LORA10TA2; +MELA5TAB20 PO; +MULT1CHW39 PO; +NAPR-885 PO; +NORCOTAB PO; +ROBA500T PO; +VENTAER INH; +VITMTA PO
[2018-02-11 14:14] LABS: HCG, SERUM QUALITATIVE NEGATIVE (NEGATIVE)
[2018-02-11 14:16] LABS: HCG, SERUM QUANTITATIVE < 1.0 MIU/ML
== END ==
LOC: M SFHCPLAZ 10:09
PROVIDERS: ATTEND Nurse Practitioner Adult Health
DX: R14.0 Abdominal distension (gaseous) (principal)

== ENCOUNTER → 2018-02-23 | Outpatient (CLI) | payer OTHER ==
--- NOTE | 2018-02-24 04:42 | REP ---
Clinical: Abdominopelvic pain with bloating . Technique: Transabdominal pelvic ultrasound with color evaluation of the ovaries. Findings: Bladder is unremarkable and measures 9.0 x 7.4 x 7.6 cm . Normal anteverted uterus measures 8.9 x 4.2 x 5.5 cm . The endometrial complex measures 6.0 mm thickness. No discrete uterine or endometrial abnormalities are appreciated. Bilateral ovaries are normal in appearance without evidence for torsion. Right ovary measures 2.3 x 1.2 x 1.6 cm ; Left ovary measures 2.0 x 1.7 x 2.1 cm. No pelvic fluid or adnexal mass lesion . Impression: 1. normal pelvic ultrasound Electronically Signed by Keagan Mcdaniel MD 02/24/2018 04:33 A
== END ==
LOC: M RAD 11:07
PROVIDERS: ATTEND Nurse Practitioner Adult Health
DX: R14.0 Abdominal distension (gaseous) (principal)

== ENCOUNTER 2018-03-14 13:02 | Emergency (ER) | payer MEDICAID, OTHER ==
[~2018-03-14] VITALS: Ht 167.6 cm; Wt 106.9 kg
[2018-03-14] MEDS ORDERED: NS 1,000 ML IV ONE (13:15)
[2018-03-14 13:18] LABS: VENOUS BASE EXCESS -2.3 (-2.0-2.0); VENOUS HCO3 22.9 MEQ/L (23.0-27.0); VENOUS O2 SATURATION 90.8 % (60.0-80.0); VENOUS PARTIAL PRESSURE CO2 41.2 mmHg (38.0-50.0); VENOUS PARTIAL PRESSURE O2 60.7 mmHg (30.0-50.0); VENOUS PH 7.363 UNITS (7.330-7.430); VENOUS STANDARD HCO3 22.4 MEQ/L; VENOUS TOTAL CO2 24.2 MEQ/L (24.0-28.0)
[2018-03-14 13:25] LABS: BASO % 0.4 % (0.0-1.0); EOS # 0.2 10^3/uL (0.0-0.50); EOS % 2.1 % (0.0-3.0); HEMATOCRIT 41.1 % (36.0-47.0); HEMOGLOBIN 13.8 g/dl (12.0-15.5); LYMPH # 1.9 10^3/uL (1.5-4.5); LYMPH % 20.6 % (24.0-44.0); MEAN CORPUSCULAR HEMOGLOBIN 30.7 pg (27.0-33.0); MEAN CORPUSCULAR HGB CONC 33.6 g/dl (32.0-36.5); MEAN CORPUSCULAR VOLUME 91.5 fl (80.0-96.0); MONO # 0.7 10^3/uL (0.0-0.8); MONO % 7.5 % (0.0-5.0); NEUTROPHILS # 6.2 10^3/uL (1.8-7.7); NEUTROPHILS % 69.1 % (36.0-66.0); PLATELET COUNT, AUTOMATED 282 10^3/uL (150-450); RED BLOOD COUNT 4.49 10^6/uL (4.00-5.40)
--- NOTE | 2018-03-14 13:33 | REP ---
Clinical: Drug overdose . Comparison: 01/22/2017 . Findings: The mediastinum and cardiac silhouette are stable and within normal limits for portable technique. The lung grande are clear without acute consolidation, effusion, or pneumothorax. Skeletal structures are intact. Impression: No acute cardiopulmonary process appreciated. Electronically Signed by Keagan Mcdaniel MD 03/14/2018 01:25 P
[2018-03-14 13:45] LABS: OSMOLALITY SERUM 299 MOSM/KG (275-295)
[2018-03-14 14:19] LABS: BLOOD UREA NITROGEN 14 MG/DL (7-18); CREATININE FOR GFR 0.78 MG/DL (0.55-1.30); GLOMERULAR FILTRATION RATE > 60.0 (>60); GLUCOSE, FASTING 122 MG/DL (70-100); POTASSIUM SERUM 4.2 MEQ/L (3.5-5.1); SODIUM LEVEL 141 MEQ/L (136-145)
[2018-03-14 14:20] LABS: ALT/SGPT 34 U/L (12-78); CALCIUM LEVEL 8.5 MG/DL (8.5-10.1); CARBON DIOXIDE LEVEL 23 MEQ/L (21-32); CHLORIDE LEVEL 108 MEQ/L (98-107)
[2018-03-14 14:24] LABS: BILIRUBIN,DIRECT < 0.1 MG/DL (0.0-0.2); BILIRUBIN,TOTAL 0.3 MG/DL (0.2-1.0); TOTAL PROTEIN 7.5 GM/DL (6.4-8.2)
[2018-03-14 14:25] LABS: ACETAMINOPHEN LEVEL < 2.0 UG/ML (10.0-30.0); ALBUMIN 3.7 GM/DL (3.2-5.2); ETHYL ALCOHOL (ETHANOL) < 0.003 % (0.000-0.010); SALICYLATE LEVEL < 1.7 MG/DL (5.0-30.0)
[2018-03-14 14:27] LABS: AMPHETAMINES LEVEL URINE NEGATIVE (NEGATIVE)
[2018-03-14 14:28] LABS: BARBITURATES URINE NEGATIVE (NEGATIVE); BENZODIAZEPINES URINE NEGATIVE (NEGATIVE); CANNABINOIDS URINE NEGATIVE (NEGATIVE); COCAINE METABOLITE URINE NEGATIVE (NEGATIVE); METHADONE URINE NEGATIVE (NEGATIVE); OPIATES URINE NEGATIVE (NEGATIVE); PHENCYCLIDINE URINE NEGATIVE (NEGATIVE)
[2018-03-14 14:36] LABS: CPK CREATINE PHOSPHOKINASE 84 U/L (26-192)
[2018-03-14 20:52] LABS: HCG, SERUM QUANTITATIVE < 1.0 MIU/ML
[2018-03-15 07:53] VITALS: BP 123/74
--- NOTE | 2018-03-15 08:03 | ECGEPIP ---
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
--- NOTE | 2018-03-15 08:39 | ECGEPIP ---
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
== END 2018-03-15 07:55 ==
LOC: M ED 13:02 → EDBD 13:02 → M ED 03-15 07:55
DX: F41.9 Anxiety disorder, unspecified (principal); F32.9 Major depressive disorder, single episode, unspecified; R45.851 Suicidal ideations; J45.909 Unspecified asthma, uncomplicated; F41.0 Panic disorder [episodic paroxysmal anxiety]; G89.29 Other chronic pain; M79.662 Pain in left lower leg; K76.0 Fatty (change of) liver, not elsewhere classified; F43.10 Post-traumatic stress disorder, unspecified; F60.3 Borderline personality disorder; M51.36 Other intervertebral disc degeneration, lumbar region; Z79.899 Other long term (current) drug therapy; Z88.8 Allergy status to other drugs, medicaments and biological substances
CPT/HCPCS: 36415; 71045; 80048; 80076; 80307; 81001; 82550; 82803; 83930; 84443; 84702; 85025; 87086; 93005; 93041; 99285; G0480

== ENCOUNTER → 2018-11-04 | Outpatient (REF) | payer OTHER ==
[~2018-11-04] MED LIST changes: -DIPH25CA PO; +DIPH25CA32 PO; +HYDR-3715 PO; -MULT1CHW39 PO; +MULT200T7 PO; -NORCOTAB PO
== END ==
LOC: M LAB REF 17:26
PROVIDERS: ATTEND Physician Assistant
DX: N91.2 Amenorrhea, unspecified (principal)

== ENCOUNTER → 2018-12-01 | Outpatient (CLI) | payer OTHER ==
--- NOTE | 2018-12-01 19:22 | REP ---
Clinical: Abnormal menstrual cycles. Technique: Transabdominal pelvic ultrasound followed by transvaginal examination for better evaluation of the endometrium and adnexa. Findings: Anteverted uterus measures 8.3 x 5.7 x 6.2 cm. Endometrial complex measures 15 mm in thickness. A hyperechoic mass within the endometrium measuring 11 x 7 x 10 mm is suggested which may represent polyp. Bilateral ovaries are relatively normal in appearance and vascularity without torsion. Right ovary measures 3.1 x 2.4 x 2.5 cm (RI 0.64) and includes 1.5 cm cyst / follicle. Left ovary measures 1.5 x 1.3 x 1.0 cm (RI 0.44). No pelvic fluid or adnexal mass lesion. Bladder measures 13.1 x 6.8 x 9.2 cm and appears normal. Impression: 1. Endometrial lesions likely representing polyp. Follow-up is recommended. Electronically Signed by Keagan Mcdaniel MD 12/01/2018 07:13 P
== END ==
LOC: M RAD 08:38
PROVIDERS: ATTEND Nurse Practitioner Family
DX: N85.9 Noninflammatory disorder of uterus, unspecified (principal)

== ENCOUNTER → 2018-12-14 | Outpatient (REF) | payer OTHER ==
[2018-12-14 16:35] LABS: HCG, SERUM QUANTITATIVE < 1.0 MIU/ML
[2018-12-14 16:38] LABS: HCG, SERUM QUALITATIVE NEGATIVE (NEGATIVE)
== END ==
LOC: M SFHCPLAZ 12:21
PROVIDERS: ATTEND Nurse Practitioner Adult Health
DX: R10.2 Pelvic and perineal pain (principal); N92.6 Irregular menstruation, unspecified

== ENCOUNTER → 2019-02-23 | Outpatient (REF) | payer OTHER | LOC: M SFHCWAGY 18:04 | PROVIDERS: ATTEND Advanced Practice Midwife | DX: Z12.4 Encounter for screening for malignant neoplasm of cervix (principal) ==

== ENCOUNTER → 2019-04-18 | Outpatient (REF) | payer OTHER ==
[2019-04-18 18:07] LABS: ALBUMIN 3.7 GM/DL (3.2-5.2); ALT/SGPT 48 U/L (12-78); BILIRUBIN,TOTAL 0.3 MG/DL (0.2-1.0); BLOOD UREA NITROGEN 17 MG/DL (7-18); CALCIUM LEVEL 9.2 MG/DL (8.5-10.1); CARBON DIOXIDE LEVEL 32 MEQ/L (21-32); CHLORIDE LEVEL 105 MEQ/L (98-107); CREATININE FOR GFR 0.73 MG/DL (0.55-1.30); GLOMERULAR FILTRATION RATE > 60.0 (>60); GLUCOSE, FASTING 91 MG/DL (70-100); POTASSIUM SERUM 4.2 MEQ/L (3.5-5.1); SODIUM LEVEL 140 MEQ/L (136-145); TOTAL PROTEIN 7.1 GM/DL (6.4-8.2)
== END ==
LOC: M SFHCPLAZ 14:49
PROVIDERS: ATTEND Nurse Practitioner Adult Health
DX: Z00.00 Encounter for general adult medical examination without abnormal findings (principal); K76.0 Fatty (change of) liver, not elsewhere classified

== ENCOUNTER 2020-09-10 08:13 | Emergency (ER) | payer OTHER ==
[~2020-09-10] VITALS: Ht 167.6 cm; Wt 113.5 kg
[~2020-09-10 08:13] MED LIST changes: -BANO25CA; +BUPR150T12; -BUPR150T3; +DIPH-319
[2020-09-10 08:16] VITALS: BP 139/86
[2020-09-10] MEDS ORDERED: ACET-683 PO (08:57)
[2020-09-10] MEDS ORDERED: MAGIC MOUTHWASH *ED ONLY* 5ML ORAL SYRINGE SS ONE (10:05)
[2020-09-10] MEDS ORDERED: ONDANSETRON 4 MG ORAL DISINTEGRATING TAB PO ONE (10:05)
--- NOTE | 2020-09-10 10:37 | REP ---
INDICATION: cough, fever, poss COVID. COMPARISON: None. FINDINGS: The technique utilized in obtaining the radiograph has magnified the cardiac silhouette and accentuated the interstitial markings. The superior mediastinal structures are midline. The cardiac silhouette is unremarkable in size, shape, and position. The diaphragmatic surfaces of the lungs are regular, and the costophrenic angles are clear. The pulmonary grande are clear. The imaged osseous structures are intact. IMPRESSION: There is no acute cardiopulmonary disease. <Electronically signed by Russell Burt > 09/10/20 [id number]
[2020-09-10 11:58] LABS: RSV AMPLIFICATION NEGATIVE (NEGATIVE)
[2020-09-10] MEDS ORDERED: ONDA4TAB6 PO (12:25)
[2020-09-10] MEDS ORDERED: MAGICMW SSP (12:25)
== END 2020-09-10 12:48 | disposition home or self-care (01) ==
LOC: M ED 08:13
DX: U07.1 COVID-19 (principal); J02.9 Acute pharyngitis, unspecified; R11.2 Nausea with vomiting, unspecified; R19.7 Diarrhea, unspecified; J45.909 Unspecified asthma, uncomplicated; Z79.899 Other long term (current) drug therapy
CPT/HCPCS: 71045; 87631; 99283; Q0162

== ENCOUNTER → 2020-10-10 | Outpatient (CLI) | payer OTHER ==
[~2020-10-10] MED LIST changes: +ACET-683 PO; +MAGICMW SSP; +ONDA4TAB6 PO
== END ==
LOC: M LABSMTC 11:53
PROVIDERS: ATTEND Pediatrics
DX: Z11.52 Encounter for screening for COVID-19 (principal)

== ENCOUNTER → 2020-12-06 | Outpatient (CLI) | payer OTHER ==
--- NOTE | 2020-12-06 15:36 | REP ---
INDICATION: GENERALIZED ABDOMINAL PAIN. COMPARISON: 01/22/2017 FINDINGS: KUB shows the intestinal gas pattern to be nonspecific. The organ silhouettes insofar as delineated are unremarkable. There is no evidence of free intraperitoneal air. The stool pattern is within normal limits. There is an incidental unchanged left jeanna pelvic phlebolith. There is no significant change in appearance of the osseous structures. IMPRESSION: Nonspecific. No plain radiographic evidence of acute disease. <Electronically signed by Russell Burt > 12/06/20 [id number]
[2020-12-06 15:40] LABS: BASO % 0.4 % (0.0-1.0); EOS # 0.2 10^3/uL (0.0-0.5); EOS % 2.2 % (0.0-3.0); HEMATOCRIT 43.1 % (36.0-47.0); HEMOGLOBIN 14.4 g/dl (12.0-15.5); LYMPH # 2.6 10^3/uL (1.5-5.0); LYMPH % 31.2 % (24.0-44.0); MEAN CORPUSCULAR HEMOGLOBIN 30.4 pg (27.0-33.0); MEAN CORPUSCULAR HGB CONC 33.4 g/dl (32.0-36.5); MEAN CORPUSCULAR VOLUME 90.9 fl (80.0-96.0); MONO # 0.6 10^3/uL (0.0-0.8); MONO % 7.3 % (2.0-8.0); NEUTROPHILS # 4.8 10^3/uL (1.5-8.5); NEUTROPHILS % 58.5 % (36.0-66.0); PLATELET COUNT, AUTOMATED 254 10^3/uL (150-450); RED BLOOD COUNT 4.74 10^6/uL (4.00-5.40); WHITE BLOOD COUNT 8.2 10^3/uL (4.0-10.0)
[2020-12-06 16:04] LABS: ALBUMIN 3.6 GM/DL (3.2-5.2); ALT/SGPT 103 U/L (12-78); BILIRUBIN,TOTAL 0.4 MG/DL (0.2-1.0); BLOOD UREA NITROGEN 14 MG/DL (7-18); CALCIUM LEVEL 9.4 MG/DL (8.5-10.1); CARBON DIOXIDE LEVEL 30 MEQ/L (21-32); CHLORIDE LEVEL 106 MEQ/L (98-107); CREATININE FOR GFR 0.68 MG/DL (0.55-1.30); GLOMERULAR FILTRATION RATE > 60.0 (>58); GLUCOSE, FASTING 100 MG/DL (70-100); HCG, SERUM QUANTITATIVE < 1.0 MIU/ML; LIPASE 102 U/L (73-393); POTASSIUM SERUM 4.3 MEQ/L (3.5-5.1); SODIUM LEVEL 139 MEQ/L (136-145); TOTAL PROTEIN 7.6 GM/DL (6.4-8.2)
== END ==
LOC: M PLAIMG 13:51 → M PLALAB 13:51
PROVIDERS: ATTEND Physician Assistant
DX: R10.84 Generalized abdominal pain (principal)

== ENCOUNTER → 2020-12-11 | Outpatient (CLI) | payer OTHER ==
[2020-12-11 13:44] LABS: INR 1.04
[2020-12-11 13:45] LABS: PARTIAL THROMBOPLASTIN TIME 32.1 SECONDS (25.9-37.0)
[2020-12-11 13:55] LABS: FERRITIN 147 NG/ML (8-252); IRON (FE) 50 UG/DL (50-170); PERCENT SATURATION 17.4 % (13.2-45.0); TOTAL IRON BINDING CAPACITY 288 UG/DL (250-450)
[2020-12-11 14:01] LABS: HEPATITIS B SURFACE ANTIBODY NEGATIVE (POSITIVE)
[2020-12-11 14:12] LABS: HEPATITIS B SURFACE ANTIGEN NEGATIVE (NEGATIVE)
[2020-12-11 14:41] LABS: HEPATITIS C VIRUS ABY INDEX < 0.0 INDEX (<0.8)
[2020-12-12 17:07] LABS: ANTI DOUBLE STRAND-DNA AB <1 IU/mL (0-9); ANTI-MITOCHONDRIAL ANTIBODY <20.0 Units (0.0-20.0); ANTINUCLEAR ANTIBODIES DIRECT Positive (Negative); H PYLORI SERUM QUANT IGA <9.0 units (0.0-8.9); HEPATITIS A IgG TOTAL Negative (Negative); RNP ANTIBODIES 2.8 AI (0.0-0.9); SJOGREN'S ANTI SS-A <0.2 AI (0.0-0.9); SJOGREN'S ANTI SS-B <0.2 AI (0.0-0.9); SMITH ANTIBODIES <0.2 AI (0.0-0.9)
== END ==
LOC: M PLALAB 11:09
PROVIDERS: ATTEND Physician Assistant
DX: K76.0 Fatty (change of) liver, not elsewhere classified (principal)

== ENCOUNTER → 2020-12-12 | Outpatient (CLI) | payer OTHER ==
[~2020-12-12] MED LIST changes: +GASTROGRAFIN SOLUTION 30ML (Q9963) As Ordered ONE; +ISOVUE-370 76% 100ML VIAL As Ordered ONE
--- NOTE | 2020-12-12 17:54 | REP ---
INDICATION: ABD PAIN, VOMITING, FATTY LIVER, ELEVATED LFTS. COMPARISON: Multiple the latest 01/04/2018 TECHNIQUE: Standard helical technique after the intravenous administration of 100 cc Isovue 370. Oral bowel preparatory contrast was also administered prior to the exam. FINDINGS: The lung bases are clear and unchanged. The liver, gallbladder, spleen, pancreas, adrenal glands, and kidneys are unchanged. No enhancing masses have developed. The abdominal aorta and para-aortic regions are again seen to be within normal limits. The bowel loops and the mesenteries are again seen to be within normal limits. No mass or adenopathy has developed. There is no free fluid or free air. Bone window technique throughout the exam shows no significant change in appearance of the osseous structures. They are stable and intact. There are spinal degenerative changes status quo. 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 IMPRESSION: There is no evidence of acute disease. There has been no significant change compared to the prior exam with findings as described above. <Electronically signed by Russell Burt > 12/12/20 [id number]
== END ==
LOC: M RAD 15:47
PROVIDERS: ATTEND Physician Assistant
DX: K76.0 Fatty (change of) liver, not elsewhere classified (principal); R10.30 Lower abdominal pain, unspecified; R79.89 Other specified abnormal findings of blood chemistry; R11.2 Nausea with vomiting, unspecified
CPT/HCPCS: 74177; Q9963; Q9967

== ENCOUNTER → 2021-01-10 | Outpatient (CLI) | payer OTHER ==
[~2021-01-10] MED LIST changes: -GASTROGRAFIN SOLUTION 30ML (Q9963) As Ordered ONE; -ISOVUE-370 76% 100ML VIAL As Ordered ONE
[2021-01-10 11:08] LABS: ALBUMIN 3.4 GM/DL (3.2-5.2); BILIRUBIN,DIRECT 0.1 MG/DL (0.0-0.2); BILIRUBIN,TOTAL 0.6 MG/DL (0.2-1.0); TOTAL PROTEIN 7.3 GM/DL (6.4-8.2)
== END ==
LOC: M PLALAB 07:09
PROVIDERS: ATTEND Physician Assistant
DX: R79.89 Other specified abnormal findings of blood chemistry (principal)

== ENCOUNTER → 2021-05-15 | Outpatient (CLI) | payer OTHER ==
[2021-05-15 16:04] LABS: ALBUMIN 3.4 GM/DL (3.2-5.2); ALT/SGPT 82 U/L (12-78); BILIRUBIN,TOTAL 0.5 MG/DL (0.2-1.0); BLOOD UREA NITROGEN 17 MG/DL (7-18); CALCIUM LEVEL 9.1 MG/DL (8.5-10.1); CARBON DIOXIDE LEVEL 28 MEQ/L (21-32); CHLORIDE LEVEL 106 MEQ/L (98-107); CREATININE FOR GFR 0.73 MG/DL (0.55-1.30); GLOMERULAR FILTRATION RATE > 60.0 (>58); GLUCOSE, FASTING 115 MG/DL (70-100); POTASSIUM SERUM 4.1 MEQ/L (3.5-5.1); SODIUM LEVEL 140 MEQ/L (136-145); TOTAL PROTEIN 7.2 GM/DL (6.4-8.2)
== END ==
LOC: M PLALAB 13:56
PROVIDERS: ATTEND Nurse Practitioner Adult Health
DX: Z00.00 Encounter for general adult medical examination without abnormal findings (principal)

== ENCOUNTER → 2021-07-23 | Outpatient (CLI) | payer OTHER | LOC: M WUC 13:04 | PROVIDERS: ATTEND Student in an Organized Health Care Education/Training Program | DX: M25.571 Pain in right ankle and joints of right foot (principal) ==

== ENCOUNTER → 2021-12-03 | Outpatient (CLI) | payer OTHER ==
[2021-12-03 14:30] LABS: ALBUMIN 3.3 GM/DL (3.2-5.2); ALT/SGPT 54 U/L (12-78); BILIRUBIN,TOTAL 0.5 MG/DL (0.2-1.0); BLOOD UREA NITROGEN 13 MG/DL (7-18); CALCIUM LEVEL 8.7 MG/DL (8.5-10.1); CARBON DIOXIDE LEVEL 28 MEQ/L (21-32); CHLORIDE LEVEL 105 MEQ/L (98-107); CREATININE FOR GFR 0.73 MG/DL (0.55-1.30); GLOMERULAR FILTRATION RATE > 60.0 (>58); GLUCOSE, FASTING 117 MG/DL (70-100); POTASSIUM SERUM 4.3 MEQ/L (3.5-5.1); SODIUM LEVEL 137 MEQ/L (136-145); TOTAL PROTEIN 7.2 GM/DL (6.4-8.2)
[2021-12-03 17:41] LABS: FOLLICLE STIMULATING HORMONE 5.4 mIU/mL; LUTEINIZING HORMONE 4.6 mIU/mL
== END ==
LOC: M PLALAB 09:41
PROVIDERS: ATTEND Nurse Practitioner Adult Health
DX: N92.6 Irregular menstruation, unspecified (principal); K76.0 Fatty (change of) liver, not elsewhere classified; Z13.21 Encounter for screening for nutritional disorder

== ENCOUNTER → 2022-11-17 | Outpatient (CLI) | payer OTHER ==
[~2022-11-17] MED LIST changes: +DIPH-435 PO; -DIPH25CA32 PO
[2022-11-17 13:34] LABS: HEMOGLOBIN 13.2 g/dl (12.0-15.5); MEAN CORPUSCULAR HEMOGLOBIN 29.8 pg (27.0-33.0); MEAN CORPUSCULAR HGB CONC 33.8 g/dl (32.0-36.5); PLATELET COUNT, AUTOMATED 275 10^3/uL (150-450); RED BLOOD COUNT 4.43 10^6/uL (4.00-5.40); WHITE BLOOD COUNT 9.4 10^3/uL (4.0-10.0)
[2022-11-17 13:55] LABS: THYROID STIMULATING HORMONE 2.167 uIU/ML (0.55-4.78); TOTAL 25(OH) VITAMIN D 23.6 NG/ML (20.0-100.0)
[2022-11-17 14:03] LABS: ALBUMIN 3.3 G/DL (3.2-5.2); ALKALINE PHOSPHATASE 79 U/L (46-116); ALT/SGPT 34 U/L (7.0-40); AST/SGOT 25 U/L (<34); BILIRUBIN,TOTAL 0.4 MG/DL (0.3-1.2); BLOOD UREA NITROGEN 14 MG/DL (9-23); CALCIUM LEVEL 9.3 MG/DL (8.5-10.1); CARBON DIOXIDE LEVEL 28 MMOL/L (20-31); CHLORIDE LEVEL 105 MMOL/L (98-107); GLOMERULAR FILTRATION RATE > 60.0 (>58); GLUCOSE, FASTING 127 MG/DL (60-100); POTASSIUM SERUM 4.3 MMOL/L (3.5-5.1); SODIUM LEVEL 138 MMOL/L (136-145); TOTAL PROTEIN 6.9 G/DL (5.7-8.2)
== END ==
LOC: M PLALAB 09:51
PROVIDERS: ATTEND Nurse Practitioner Adult Health
DX: Z00.00 Encounter for general adult medical examination without abnormal findings (principal); Z13.29 Encounter for screening for other suspected endocrine disorder; Z13.21 Encounter for screening for nutritional disorder; K76.0 Fatty (change of) liver, not elsewhere classified

== ENCOUNTER 2022-12-30 11:39 | Emergency (ER) | payer OTHER ==
[~2022-12-30] VITALS: Ht 167.6 cm; Wt 113.1 kg
[~2022-12-30 11:39] MED LIST changes: -DIPH-319; +DIPH-429
[2022-12-30] MEDS ORDERED: INDO50CA91 PO (14:21)
[2022-12-30 14:29] VITALS: BP 145/68; TEMP 98.3; O2SAT 96
== END 2022-12-30 14:33 | disposition home or self-care (01) ==
LOC: M ED 11:39
DX: M77.02 Medial epicondylitis, left elbow (principal); J45.909 Unspecified asthma, uncomplicated; F41.9 Anxiety disorder, unspecified; F32.A Depression, unspecified; Z79.899 Other long term (current) drug therapy; Z88.8 Allergy status to other drugs, medicaments and biological substances

== ENCOUNTER → 2023-03-03 | Outpatient (CLI) | payer OTHER ==
[~2023-03-03] MED LIST changes: +INDO50CA91 PO
== END ==
LOC: M SOG 07:51
PROVIDERS: ATTEND Physician Assistant
DX: M25.532 Pain in left wrist (principal)

== ENCOUNTER → 2023-03-18 | Outpatient (CLI) | payer OTHER | LOC: M SOG 07:56 | PROVIDERS: ATTEND Physician Assistant | DX: M25.532 Pain in left wrist (principal) ==

== ENCOUNTER → 2023-06-01 | Outpatient (CLI) | payer OTHER ==
[2023-06-01 11:37] LABS: ALBUMIN 3.2 G/DL (3.2-5.2); ALKALINE PHOSPHATASE 83 U/L (46-116); ALT/SGPT 40 U/L (7.0-40); AST/SGOT 22 U/L (<34); BILIRUBIN,TOTAL 0.5 MG/DL (0.3-1.2); BLOOD UREA NITROGEN 17 MG/DL (9-23); CALCIUM LEVEL 8.6 MG/DL (8.5-10.1); CARBON DIOXIDE LEVEL 30 MMOL/L (20-31); CHLORIDE LEVEL 101 MMOL/L (98-107); GLOMERULAR FILTRATION RATE > 60.0 (>58); GLUCOSE, FASTING 197 MG/DL (60-100); POTASSIUM SERUM 4.6 MMOL/L (3.5-5.1); SODIUM LEVEL 137 MMOL/L (136-145)
[2023-06-01 12:42] LABS: HEMOGLOBIN A1c 5.2 % (4.0-6.0)
== END ==
LOC: M PLALAB 09:07
PROVIDERS: ATTEND Nurse Practitioner Adult Health
DX: R73.9 Hyperglycemia, unspecified (principal)

== ENCOUNTER 2023-09-20 11:07 | Emergency (ER) | payer OTHER ==
[~2023-09-20] VITALS: Ht 167.6 cm; Wt 112.0 kg
[~2023-09-20 11:07] MED LIST changes: +ONDA-282 PO; -ONDA4TAB6 PO
[2023-09-20] MEDS ORDERED: CETI-24 (11:20)
[2023-09-20 12:26] LABS: BASO # 0.1 10^3/uL (0.0-0.2); BASO % 0.6 % (0.0-1.0); EOS # 0.2 10^3/uL (0.0-0.5); HEMATOCRIT 39.9 % (36.0-47.0); HEMOGLOBIN 13.8 g/dl (12.0-15.5); LYMPH # 2.4 10^3/uL (1.5-5.0); LYMPH % 23.3 % (24.0-44.0); MEAN CORPUSCULAR HEMOGLOBIN 30.3 pg (27.0-33.0); MEAN CORPUSCULAR HGB CONC 34.6 g/dl (32.0-36.5); MEAN CORPUSCULAR VOLUME 87.5 fl (80.0-96.0); MONO # 0.9 10^3/uL (0.0-0.8); MONO % 8.6 % (2.0-8.0); NEUTROPHILS # 6.6 10^3/uL (1.5-8.5); NEUTROPHILS % 64.9 % (36.0-66.0); PLATELET COUNT, AUTOMATED 308 10^3/uL (150-450); RED BLOOD COUNT 4.56 10^6/uL (4.00-5.40); WHITE BLOOD COUNT 10.2 10^3/uL (4.0-10.0)
[2023-09-20 12:54] LABS: LIPASE 29 U/L (12-53)
[2023-09-20 12:55] LABS: HCG, SERUM QUALITATIVE NEGATIVE (NEGATIVE)
[2023-09-20 12:57] LABS: ALBUMIN 3.5 G/DL (3.2-5.2); ALKALINE PHOSPHATASE 86 U/L (46-116); ALT/SGPT 31 U/L (7.0-40); AST/SGOT 22 U/L (<34); BILIRUBIN,DIRECT 0.1 MG/DL (<0.4); BILIRUBIN,TOTAL 0.6 MG/DL (0.3-1.2); BLOOD UREA NITROGEN 14 MG/DL (9-23); CALCIUM LEVEL 8.7 MG/DL (8.5-10.1); CARBON DIOXIDE LEVEL 27 MMOL/L (20-31); CHLORIDE LEVEL 104 MMOL/L (98-107); CREATININE FOR GFR 0.61 MG/DL (0.55-1.30); GLOMERULAR FILTRATION RATE > 60.0 (>58); GLUCOSE, FASTING 94 MG/DL (60-100); POTASSIUM SERUM 4.3 MMOL/L (3.5-5.1); SODIUM LEVEL 135 MMOL/L (136-145); TOTAL PROTEIN 7.2 G/DL (5.7-8.2)
[2023-09-20] MEDS: ONDANSETRON 4MG 2ML VIAL IV ONE (13:07)
[2023-09-20] MEDS: KETOROLAC 30 MG/ML 1ML VIAL IV ONE (13:07)
[2023-09-20] MEDS: NS 1,000 ML IV ONE (13:07)
[2023-09-20] MEDS ORDERED: ISOVUE-370 76% 100ML VIAL As Ordered ONE (14:03)
[2023-09-20] MEDS ORDERED: ONDA-282 PO (15:54)
[2023-09-20 16:49] VITALS: BP 137/74; TEMP 97.3; O2SAT 97
== END 2023-09-20 17:11 | disposition home or self-care (01) ==
LOC: M ED 11:07
DX: R11.2 Nausea with vomiting, unspecified (principal); R10.9 Unspecified abdominal pain; J45.909 Unspecified asthma, uncomplicated; F41.9 Anxiety disorder, unspecified; F32.A Depression, unspecified; Z88.8 Allergy status to other drugs, medicaments and biological substances; Z79.51 Long term (current) use of inhaled steroids; Z79.899 Other long term (current) drug therapy
CPT/HCPCS: 74177; 80048; 80076; 81001; 83605; 83690; 84703; 85025; 93041; 96361; 96374; 99284; J1885; J2405; Q9967

== ENCOUNTER → 2023-10-10 | Outpatient (REF) | payer OTHER ==
[~2023-10-10] MED LIST changes: +CETI-24
[2023-10-10 20:49] LABS: APPEARANCE, URINE HAZY (CLEAR); BACTERIA, URINE AUTO NEGATIVE (NEGATIVE); BILIRUBIN, URINE AUTO NEGATIVE (NEGATIVE); BLOOD, URINE BLOOD NEGATIVE (NEGATIVE); COLOR, URINE YELLOW (YELLOW); GLUCOSE, URINE (UA) AUTO NEGATIVE (NEGATIVE); KETONE, URINE AUTO NEGATIVE (NEGATIVE); LEUKOCYTE ESTERASE, URINE AUTO NEGATIVE (NEGATIVE); MUCUS, URINE SMALL (NEGATIVE); NITRITE, URINE AUTO NEGATIVE (NEGATIVE); PROTEIN, URINE AUTO NEGATIVE (NEGATIVE); RBC, URINE AUTO 0 /HPF (0-3); SPECIFIC GRAVITY URINE AUTO 1.025 (1.002-1.035); SQUAMOUS EPITHELIAL CELL UR AU 7 /HPF (0-6); UROBILINOGEN, URINE AUTO 0.2 mg/dL (0.0-2.0); WBC, URINE AUTO 0 /HPF (0-3)
== END ==
LOC: M LAB REF 12:50
PROVIDERS: ATTEND Physician Assistant
DX: N39.0 Urinary tract infection, site not specified (principal)

== ENCOUNTER → 2023-11-13 | Outpatient (REF) | payer OTHER ==
[~2023-11-13] MED LIST changes: -MULT200T7 PO; +MULT200T9 PO
[2023-11-17 14:02] LABS: HPV APTIMA Not Detected (Not Detected)
== END ==
LOC: M PLALAB 15:42
PROVIDERS: ATTEND Advanced Practice Midwife
DX: Z12.4 Encounter for screening for malignant neoplasm of cervix (principal)

== ENCOUNTER → 2023-12-02 | Outpatient (CLI) | payer OTHER | LOC: M WHC 10:58 | PROVIDERS: ATTEND Advanced Practice Midwife | DX: Z12.31 Encounter for screening mammogram for malignant neoplasm of breast (principal) ==

== ENCOUNTER → 2023-12-19 | Outpatient (REF) | payer OTHER ==
[2023-12-19 18:10] LABS: APPEARANCE, URINE HAZY (CLEAR); BACTERIA, URINE AUTO NEGATIVE (NEGATIVE); BILIRUBIN, URINE AUTO NEGATIVE (NEGATIVE); BLOOD, URINE BLOOD 1+ (NEGATIVE); CALCIUM OXALATE CRYSTALS SMALL; COLOR, URINE YELLOW (YELLOW); GLUCOSE, URINE (UA) AUTO NEGATIVE (NEGATIVE); KETONE, URINE AUTO NEGATIVE (NEGATIVE); LEUKOCYTE ESTERASE, URINE AUTO 3+ (NEGATIVE); MUCUS, URINE SMALL (NEGATIVE); NITRITE, URINE AUTO NEGATIVE (NEGATIVE); PROTEIN, URINE AUTO NEGATIVE (NEGATIVE); RBC, URINE AUTO 9 /HPF (0-3); SPECIFIC GRAVITY URINE AUTO 1.025 (1.002-1.035); SQUAMOUS EPITHELIAL CELL UR AU 8 /HPF (0-6); UROBILINOGEN, URINE AUTO 0.2 mg/dL (0.0-2.0); WBC, URINE AUTO 7 /HPF (0-3)
== END ==
LOC: M LAB REF 17:20
PROVIDERS: ATTEND Physician Assistant Medical
DX: N39.0 Urinary tract infection, site not specified (principal)

== ENCOUNTER 2024-02-25 09:08 | Emergency (ER) | payer OTHER ==
[~2024-02-25] VITALS: Ht 167.6 cm; Wt 107.9 kg
[2024-02-25 11:19] LABS: KETONE, URINE AUTO RFX NEGATIVE (NEGATIVE); LEUKOCYTE ESTERASE UR AUTO RFX NEGATIVE (NEGATIVE); MUCUS, URINE RFX LARGE (NEGATIVE); NITRITE, URINE AUTO RFX NEGATIVE (NEGATIVE); RBC, URINE AUTO RFX 2 /HPF (0-3); SQUAM EPITHELIAL CELL UR AURFX 53 /HPF (0-6); WBC, URINE AUTO RFX 3 /HPF (0-3)
[2024-02-25 12:11] LABS: BASO % 0.5 % (0.0-1.0); EOS # 0.2 10^3/uL (0.0-0.5); EOS % 2.5 % (0.0-3.0); HEMATOCRIT 41.9 % (36.0-47.0); HEMOGLOBIN 13.9 g/dl (12.0-15.5); LYMPH # 2.1 10^3/uL (1.5-5.0); LYMPH % 23.4 % (24.0-44.0); MEAN CORPUSCULAR HEMOGLOBIN 29.9 pg (27.0-33.0); MEAN CORPUSCULAR HGB CONC 33.2 g/dl (32.0-36.5); MEAN CORPUSCULAR VOLUME 90.1 fl (80.0-96.0); MONO # 0.6 10^3/uL (0.0-0.8); MONO % 6.7 % (2.0-8.0); NEUTROPHILS # 5.9 10^3/uL (1.5-8.5); NEUTROPHILS % 66.6 % (36.0-66.0); PLATELET COUNT, AUTOMATED 273 10^3/uL (150-450); RED BLOOD COUNT 4.65 10^6/uL (4.00-5.40); WHITE BLOOD COUNT 8.9 10^3/uL (4.0-10.0)
[2024-02-25] MEDS: ONDANSETRON 4MG 2ML VIAL IV ONE (12:22)
[2024-02-25 12:36] LABS: LIPASE 32 U/L (12-53)
[2024-02-25 12:39] LABS: ALBUMIN 3.6 G/DL (3.2-5.2); ALKALINE PHOSPHATASE 79 U/L (35-104); ALT/SGPT 34 U/L (7.0-40); AST/SGOT 26 U/L (<34); BILIRUBIN,DIRECT 0.2 MG/DL (<0.4); BILIRUBIN,TOTAL 0.7 MG/DL (0.3-1.2); BLOOD UREA NITROGEN 14 MG/DL (9-23); CALCIUM LEVEL 8.6 MG/DL (8.5-10.1); CARBON DIOXIDE LEVEL 27 MMOL/L (20-31); CHLORIDE LEVEL 107 MMOL/L (98-107); CREATININE FOR GFR 0.82 MG/DL (0.55-1.30); GLOMERULAR FILTRATION RATE > 60.0 (>58); GLUCOSE, FASTING 93 MG/DL (60-100); POTASSIUM SERUM 4.4 MMOL/L (3.5-5.1); SODIUM LEVEL 143 MMOL/L (136-145); TOTAL PROTEIN 7.3 G/DL (5.7-8.2)
[2024-02-25 12:44] LABS: HCG, SERUM QUALITATIVE NEGATIVE (NEGATIVE)
[2024-02-25] MEDS: METOCLOPRAMIDE INJ 10MG/2ML VIAL IV ONE (14:47)
[2024-02-25] MEDS: KETOROLAC 30 MG/ML 1ML VIAL IV ONE (14:48)
[2024-02-25 15:42] VITALS: BP 129/74; TEMP 98.4; O2SAT 96
[2024-02-25] MEDS ORDERED: REGL5TAB2 PO (16:01)
== END 2024-02-25 16:22 | disposition home or self-care (01) ==
LOC: M ED 09:08
DX: R11.2 Nausea with vomiting, unspecified (principal); K76.0 Fatty (change of) liver, not elsewhere classified; R10.11 Right upper quadrant pain; R16.2 Hepatomegaly with splenomegaly, not elsewhere classified; J45.909 Unspecified asthma, uncomplicated; F41.9 Anxiety disorder, unspecified; F32.A Depression, unspecified; F43.10 Post-traumatic stress disorder, unspecified; Z88.8 Allergy status to other drugs, medicaments and biological substances; Z79.1 Long term (current) use of non-steroidal anti-inflammatories (NSAID); Z79.51 Long term (current) use of inhaled steroids; Z79.899 Other long term (current) drug therapy
CPT/HCPCS: 74176; 76705; 80048; 80076; 81001; 83690; 84703; 85025; 87486; 87581; 87633; 87798; 96374; 96375; 99283; J1885; J2405; J2765

== ENCOUNTER → 2024-03-09 | Outpatient (CLI) | payer OTHER ==
[~2024-03-09] MED LIST changes: +REGL5TAB2 PO
== END ==
LOC: M WUC 11:40
PROVIDERS: ATTEND Nurse Practitioner Family
DX: M25.551 Pain in right hip (principal); W01.10XA Fall on same level from slipping, tripping and stumbling with subsequent striking against unspecified object, initial encounter

== ENCOUNTER → 2024-05-17 | Outpatient (CLI) | payer OTHER ==
[2024-05-17 10:22] LABS: HEMATOCRIT 39.7 % (36.0-47.0); HEMOGLOBIN 13.4 g/dl (12.0-15.5); MEAN CORPUSCULAR HEMOGLOBIN 30.5 pg (27.0-33.0); MEAN CORPUSCULAR HGB CONC 33.8 g/dl (32.0-36.5); MEAN CORPUSCULAR VOLUME 90.4 fl (80.0-96.0); PLATELET COUNT, AUTOMATED 268 10^3/uL (150-450); RED BLOOD COUNT 4.39 10^6/uL (4.00-5.40)
[2024-05-17 10:39] LABS: ALBUMIN 3.7 G/DL (3.2-5.2); ALKALINE PHOSPHATASE 68 U/L (35-104); ALT/SGPT 29 U/L (7.0-40); AST/SGOT 21 U/L (<34); BILIRUBIN,TOTAL 0.5 MG/DL (0.3-1.2); BLOOD UREA NITROGEN 13 MG/DL (9-23); CALCIUM LEVEL 8.7 MG/DL (8.5-10.1); CARBON DIOXIDE LEVEL 27 MMOL/L (20-31); CHLORIDE LEVEL 104 MMOL/L (98-107); FREE T4 1.03 NG/DL (0.89-1.76); GLOMERULAR FILTRATION RATE > 60.0 (>58); GLUCOSE, FASTING 116 MG/DL (60-100); POTASSIUM SERUM 4.6 MMOL/L (3.5-5.1); SODIUM LEVEL 139 MMOL/L (136-145); TOTAL PROTEIN 7.2 G/DL (5.7-8.2)
[2024-05-17 10:48] LABS: HEMOGLOBIN A1c 4.8 % (4.0-6.0)
== END ==
LOC: M PLALAB 08:20
PROVIDERS: ATTEND Nurse Practitioner Adult Health
DX: Z13.29 Encounter for screening for other suspected endocrine disorder (principal)

== ENCOUNTER 2024-11-28 11:44 | Emergency (ER) | payer OTHER ==
[~2024-11-28] VITALS: Ht 167.6 cm; Wt 105.4 kg
[2024-11-28 13:53] LABS: BASO # 0.0 10^3/uL (0.0-0.2); BASO % 0.3 % (0.0-1.0); EOS # 0.3 10^3/uL (0.0-0.5); EOS % 2.5 % (0.0-3.0); LYMPH # 2.7 10^3/uL (1.5-5.0); LYMPH % 25.5 % (24.0-44.0); MONO # 0.8 10^3/uL (0.0-0.8); MONO % 7.2 % (2.0-8.0); NEUTROPHILS # 6.7 10^3/uL (1.5-8.5); NEUTROPHILS % 63.9 % (36.0-66.0); PLATELET COUNT, AUTOMATED 290 10^3/uL (150-450)
[2024-11-28 14:02] LABS: KETONE, URINE AUTO RFX NEGATIVE (NEGATIVE); LEUKOCYTE ESTERASE UR AUTO RFX NEGATIVE (NEGATIVE); MUCUS, URINE RFX SMALL (NEGATIVE); NITRITE, URINE AUTO RFX NEGATIVE (NEGATIVE); RBC, URINE AUTO RFX 0 /HPF (0-3); SQUAM EPITHELIAL CELL UR AURFX 6 /HPF (0-6); WBC, URINE AUTO RFX 2 /HPF (0-3)
[2024-11-28 14:04] LABS: INR 0.98
[2024-11-28 14:09] LABS: URINE PREG TEST NEGATIVE (NEGATIVE)
[2024-11-28 14:23] LABS: ALT/SGPT 26 U/L (7.0-40); AST/SGOT 24 U/L (<34); CALCIUM LEVEL 9.3 MG/DL (8.5-10.1); CARBON DIOXIDE LEVEL 26 MMOL/L (20-31); CHLORIDE LEVEL 104 MMOL/L (98-107); CREATININE FOR GFR 0.72 MG/DL (0.55-1.30); GLOMERULAR FILTRATION RATE > 90.0 (>58); POTASSIUM SERUM 4.5 MMOL/L (3.5-5.1); SODIUM LEVEL 140 MMOL/L (136-145)
[2024-11-28 15:54] VITALS: BP 126/81; TEMP 98.9; O2SAT 97
== END 2024-11-28 16:00 | disposition left against medical advice (07) ==
LOC: M ED 11:44
DX: Z53.21 Procedure and treatment not carried out due to patient leaving prior to being seen by health care provider (principal)

== ENCOUNTER → 2024-12-30 | Outpatient (CLI) | payer OTHER ==
[~2024-12-30] MED LIST changes: +BUPR-363 PO; -BUPR75TA5 PO
== END ==
LOC: M WHC 10:00
PROVIDERS: ATTEND Advanced Practice Midwife
DX: Z12.31 Encounter for screening mammogram for malignant neoplasm of breast (principal)